=== PATIENT | male | born 1970 | race African-American/Black ===

== ENCOUNTER 2017-01-30 21:41 | Emergency (ER) | payer MEDICARE, OTHER ==
[~2017-01-30] VITALS: Ht 175.3 cm; Wt 57.0 kg
[~2017-01-30 21:41] MED LIST: AMLO5TAB2 PO; TOVI4TAB PO
[2017-01-30 21:54] VITALS: BP 212/118; PULSE 59; RESP 18; O2SAT 95
[2017-01-30 21:57] VITALS: TEMP 98.7
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
[2017-01-30 22:52] VITALS: BP 132/81; PULSE 58; RESP 18; O2SAT 98
== END 2017-01-31 01:53 | disposition home or self-care (01) ==
LOC: NEPE 21:41
DX: R33.9 Retention of urine, unspecified (principal); I10 Essential (primary) hypertension; N31.9 Neuromuscular dysfunction of bladder, unspecified; F17.200 Nicotine dependence, unspecified, uncomplicated; Z87.448 Personal history of other diseases of urinary system; Z87.39 Personal history of other diseases of the musculoskeletal system and connective tissue; Z86.79 Personal history of other diseases of the circulatory system; Z86.69 Personal history of other diseases of the nervous system and sense organs
CPT/HCPCS: 51702

== ENCOUNTER 2017-03-03 16:31 | Emergency (ER) | payer OTHER ==
[~2017-03-03] VITALS: Ht 175.3 cm; Wt 61.0 kg
[2017-03-03 16:32] VITALS: BP 158/90; PULSE 65; RESP 16; TEMP 98.8; O2SAT 97
--- NOTE | 2017-03-03 16:43 | PD ---
Physical Exam Time Seen by Provider: 16:40 Narrative 46yo M c/o pain to his Elizabeth catheter x 5-6 days. Placed January 30 for urinary retention. FC is patent. Denies hematuria. Was suppose to have FC changed but was unable to. Denies abd pain, fever, vomiting. Patient seen in triage. VS reviewed. Awaiting bed placement. Data Data Last Documented VS Vital Signs Date Time Temp Pulse Resp B/P Pulse Ox O2 Delivery O2 Flow Rate FiO2 03/03/17 16:32 98.8 65 16 158/90 97 Room Air MDM Supervised Visit with SABINE: Kenya Laughlin March 03, 2017 16:43
--- NOTE | 2017-03-03 17:31 | PD ---
HPI Chief Complaint: Complaint Time Seen by Provider: 17:17 Travel History International Travel<30 days: No Contact w/Intl Traveler<30days: No Traveled to known affect area: No History of Present Illness HPI Patient 46-year-old male with a history of neurologic bladder and urinary retention presents emergency Department with pelvic pain and penile pain. Patient states she's had a [place] catheter in place for the past 3 weeks. Was placed here for urine retention. He has not been able to follow-up with urologist for replacement. Denies any fever denies any nausea vomiting diarrhea or chest pain. Patient states that occasionally he does require [place] catheter is indwelling to manage his urinary retention but most the time can manage without. States every few months he has to have a catheter placed for a few months. States symptoms are moderate and gradually worsening. PFSH Past Medical History Arthritis: Yes Cancer: No Cardiovascular Problems: Yes Diminished Hearing: No Endocrine: No Gastrointestinal Disorders: No Genitourinary: Yes (neurogenic bladder, ENLARGED PROSTATE/[place] CATH 03/01 FOR RETENTION) Hypertension: Yes Immune Disorder: No Musculoskeletal: Yes Neurologic: Yes (spinal cord injury ) Psychiatric: No Reproductive: No Respiratory: No Past Surgical History Neurologic Surgery: Yes (NECK FUSION 1994) Other Surgery: Yes Social History Alcohol Use: Yes (SOMETIMES) Tobacco Use: Yes (PACK A DAY) Substance Use: No Allergies-Medications (Allergen,Severity, Reaction): Coded Allergies: *MDRO Multi-Drug Resistant Organism (Verified Adverse Reaction, Unknown, 08/10/16) MRSA (urine-03/2016) Reported Meds & Prescriptions Reported Meds & Active Scripts Active Bactrim DS (Sulfamethoxazole-Trimethoprim) 800-160 Mg Tab 1 Tab PO BID Review of Systems Except as stated in HPI: all other systems reviewed are Neg Physical Exam Narrative GENERAL: Well-developed well-nourished, uncomfortable appearance. SKIN: Focused skin assessment warm/dry. HEAD: Atraumatic. Normocephalic. EYES: Pupils equal and round. No scleral icterus. No injection or drainage. ENT: No nasal bleeding or discharge. Mucous membranes pink and moist. NECK: Trachea midline. No JVD. CARDIOVASCULAR: Regular rate and rhythm. No murmur appreciated. RESPIRATORY: No accessory muscle use. Clear to auscultation. Breath sounds equal bilaterally. GASTROINTESTINAL: Abdomen soft, and only tender in the superpubic area, nondistended. Hepatic and splenic margins not palpable. GENITOURINARY: [place] catheter in place, after removal no discharge present. No mass no lesion no rash. MUSCULOSKELETAL: No obvious deformities. No clubbing. No cyanosis. No edema. NEUROLOGICAL: Awake and alert. No obvious cranial nerve deficits. There is some sluggish movements and contractions of the right upper and right lower extremity.. Normal speech. PSYCHIATRIC: Appropriate mood and affect; insight and judgment normal. Data Data Last Documented VS Vital Signs Date Time Temp Pulse Resp B/P Pulse Ox O2 Delivery O2 Flow Rate FiO2 03/03/17 21:07 98.1 50 18 151/82 100 03/03/17 19:15 Room Air Orders Ed Poc Ultrasound (03/03/17 ) Urinalysis - C+S If Indicated (03/03/17 17:30) Urinary Catheter - Remove (03/03/17 17:30) Complete Blood Count With Diff (03/03/17 18:56) Comprehensive Metabolic Panel (03/03/17 18:56) Iv Access Insert/Monitor (03/03/17 18:56) Ecg Monitoring (03/03/17 18:56) Oximetry (03/03/17 18:56) Morphine Inj (Morphine Inj) (03/03/17 19:00) Sodium Chloride 0.9% Flush (Ns Flush) (03/03/17 19:00) Urinary Catheter Management [id number].Q8H (03/03/17 19:00) Urinary Catheter Insert/Apply (03/03/17 19:00) Urine Culture (03/03/17 19:24) Sulfamet-Trimeth Ds 800-160 Mg (Bactrim (03/03/17 20:15) Labs Laboratory Tests Test 03/03/17 03/03/17 19:10 19:24 White Blood Count 5.8 TH/MM3 Red Blood Count 5.14 MIL/MM3 Hemoglobin 15.2 GM/DL Hematocrit 45.9 % Mean Corpuscular Volume 89.4 FL Mean Corpuscular Hemoglobin 29.6 PG Mean Corpuscular Hemoglobin 33.1 % Concent Red Cell Distribution Width 13.4 % Platelet Count 209 TH/MM3 Mean Platelet Volume 8.7 FL Neutrophils (%) (Auto) 56.3 % Lymphocytes (%) (Auto) 30.4 % Monocytes (%) (Auto) 6.5 % Eosinophils (%) (Auto) 4.7 % Basophils (%) (Auto) 2.1 % Neutrophils # (Auto) 3.3 TH/MM3 Lymphocytes # (Auto) 1.8 TH/MM3 Monocytes # (Auto) 0.4 TH/MM3 Eosinophils # (Auto) 0.3 TH/MM3 Basophils # (Auto) 0.1 TH/MM3 CBC Comment DIFF FINAL Differential Comment Sodium Level 141 MEQ/L Potassium Level 3.6 MEQ/L Chloride Level 104 MEQ/L Carbon Dioxide Level 28.7 MEQ/L Anion Gap 8 MEQ/L Blood Urea Nitrogen 13 MG/DL Creatinine 1.36 MG/DL Estimat Glomerular Filtration 68 ML/MIN Rate Random Glucose 74 MG/DL Calcium Level 9.7 MG/DL Total Bilirubin 1.4 MG/DL Aspartate Amino Transf 18 U/L (AST/SGOT) Alanine Aminotransferase 15 U/L (ALT/SGPT) Alkaline Phosphatase 71 U/L Total Protein 8.5 GM/DL Albumin 4.2 GM/DL Urine Color LIGHT-YELLOW Urine Turbidity CLEAR Urine pH 6.5 Urine Specific [place] 1.006 Urine Protein TRACE mg/dL Urine Glucose (UA) NEG mg/dL Urine Ketones NEG mg/dL Urine Occult Blood LARGE Urine Nitrite POS Urine Bilirubin NEG Urine Urobilinogen LESS THAN 2.0 MG/DL Urine Leukocyte Esterase LARGE Urine RBC 4 /hpf Urine WBC 7 /hpf Urine Amorphous Sediment RARE Urine Bacteria MANY /hpf Urine Mucus FEW /lpf Microscopic Urinalysis Comment CULTURE INDICATED MDM Medical Decision Making Medical Screen Exam Complete: Yes Emergency Medical Condition: Yes Differential Diagnosis Urinary retention, neurogenic bladder, urinary tract infection, acute kidney injury, sepsis seems unlikely. Narrative Course Patient roomed in the emergency department, his [place] catheter was removed per his request to try and relieve himself naturally. Patient was unable to do so after proximate hour, bedside ultrasound was obtained and showed a liter of urine remaining in the bladder. Patient was complaining of penile pain after the [place] catheter was removed. [place] catheter was easily placed by nursing which yielded approximately a liter of slightly turbulent urine. Nitrate positive. The remainder of his labs were reassuring, creatinine 1.3. White blood cell count of 5. Patient has no Sirs criteria in emerged Department. Given morphine as he has a ride home and is feeling better. He was given a dose of antibiotics here in emergency Department tolerated by mouth. Discussed need follow-up with the urologist and he is stable for discharge at this time. Discussed Return to ED criteria. Diagnosis Primary Impression: Complicated urinary tract infection Additional Impression: Urinary retention Referrals: Yovani Saavedra DO Additional Instructions: Follow-up with Dr. Saavedra or your urologist. Med/Other Pt SpecificInfo: Prescription(s) given Scripts Sulfamethoxazole-Trimethoprim (Bactrim DS)800-160 Mg Tab1 Tab PO BID #14 TAB Ref 0 Prov:Marty Reyna MD 03/03/17 Disposition: 01 DISCHARGE HOME Condition: Stable Marty Reyna MD March 03, 2017 17:31
[2017-03-03 18:40] VITALS: BP 121/74; PULSE 58; RESP 20; TEMP 97.8; O2SAT 100
[2017-03-03] MEDS ORDERED: SODIUM CHLORIDE 0.9% FLUSH 10 ML FLUSH IV FLUSH PRN (19:00)
[2017-03-03] MEDS ORDERED: MORPHINE SULFATE 4 MG/ML INJ IV PUSH ONE (19:00)
[2017-03-03 19:15] VITALS: BP 158/84; PULSE 58; RESP 18; TEMP 98.4; O2SAT 100
[2017-03-03 19:30] LABS: AUTOMATED NEUTROPHIL # 3.3 TH/MM3 (1.8-7.7); BASOPHIL # 0.1 TH/MM3 (0-0.2); BASOPHIL % 2.1 % (0.0-2.0); EOSINOPHIL # 0.3 TH/MM3 (0-0.4); EOSINOPHIL % 4.7 % (0.0-4.0); HEMATOCRIT 45.9 % (39.0-51.0); HEMO FLAGS DIFF FINAL; LYMPH % 30.4 % (9.0-44.0); LYMPHOCYTE # 1.8 TH/MM3 (1.0-4.8); MEAN CELL VOLUME 89.4 FL (80.0-100.0); MEAN CORPUSCULAR HEMOGLOBIN 29.6 PG (27.0-34.0); MEAN CORPUSCULAR HGB CONC 33.1 % (32.0-36.0); MONO % 6.5 % (0.0-8.0); NEUT % 56.3 % (16.0-70.0); PLATELET COUNT 209 TH/MM3 (150-450); RED BLOOD COUNT 5.14 MIL/MM3 (4.50-5.90); RED CELL DISTRIBUTION WIDTH 13.4 % (11.6-17.2); WHITE BLOOD COUNT 5.8 TH/MM3 (4.0-11.0)
[2017-03-03 19:43] LABS: BACTERIA, URINE MANY /hpf; BLOOD, URINE LARGE (NEG); COMMENT (UR) CULTURE INDICATED; CULTURE IF INDICATED CULTURE INDICATED; GLUCOSE,URINE NEG (NEG); KETONE, URINE NEG (NEG); MUCUS URINE FEW /lpf (OCC); PH, URINE 6.5 (5.0-8.5); URINE COLOR LIGHT-YELLOW (YELLW/STRAW)
[2017-03-03 19:45] LABS: NITRITE,URINE POS (NEG)
[2017-03-03 19:48] LABS: ANION GAP 8 MEQ/L (5-15); AST (GOT) 18 U/L (15-37); BICARBONATE 28.7 MEQ/L (21.0-32.0); BLOOD UREA NITROGEN 13 MG/DL (7-18); CHLORIDE 104 MEQ/L (98-107); GLOMERULAR FILTRATION RATE 68 ML/MIN (>89); POTASSIUM 3.6 MEQ/L (3.5-5.1); SODIUM (NA) 141 MEQ/L (136-145)
[2017-03-03 19:51] LABS: ALKALINE PHOSPHATASE 71 U/L (45-117); ALT (GPT) 15 U/L (12-78); TOTAL BILIRUBIN ADULT 1.4 MG/DL (0.2-1.0)
[2017-03-03] MEDS ORDERED: SULFAMETHOXAZOLE-TRIMETHOPRIM DS 800-160 MG TAB PO ONE (20:15)
[2017-03-03] MEDS ORDERED: BACT800T5 PO (20:16)
[2017-03-03 21:07] VITALS: BP 151/82; TEMP 98.1
== END 2017-03-03 21:07 | disposition home or self-care (01) ==
LOC: NEPD 16:31
DX: N39.0 Urinary tract infection, site not specified (principal); R33.9 Retention of urine, unspecified; N40.0 Benign prostatic hyperplasia without lower urinary tract symptoms; I10 Essential (primary) hypertension; F17.210 Nicotine dependence, cigarettes, uncomplicated; N31.9 Neuromuscular dysfunction of bladder, unspecified; B96.89 Other specified bacterial agents as the cause of diseases classified elsewhere
CPT/HCPCS: 51702; 80053; 81001; 85025; 87086; 96374; 99284; J2270

== ENCOUNTER 2017-03-20 22:17 | Emergency (ER) | payer OTHER ==
[~2017-03-20] VITALS: Ht 175.3 cm; Wt 60.0 kg
[~2017-03-20 22:17] MED LIST changes: -AMLO5TAB2 PO; +BACT800T5 PO; -TOVI4TAB PO
[2017-03-20 22:23] VITALS: BP 161/100; PULSE 61; RESP 16; TEMP 98.6; O2SAT 100
--- NOTE | 2017-03-20 23:05 | PD ---
HPI Chief Complaint: Complaint Time Seen by Provider: 22:57 Travel History International Travel<30 days: No Contact w/Intl Traveler<30days: No Traveled to known affect area: No History of Present Illness HPI Patient 46-year-old male known to me from previous ER visit presents emergency department for fluid leaking around his catheter. Patient has a history of partial paralysis and frequently requires catheterization for voiding. Seen sometime in the recent past and discharged with antibiotics and she was not able to fill as he lost the prescription. He denies any abdominal pain nausea vomiting or diarrhea at this time. He does endorse some mild penile tenderness. He again would like to have the catheter removed to try to urinate on his own. Symptoms have been going on for the past 2 days, no progression. PFSH Past Medical History Arthritis: Yes Cancer: No Cardiovascular Problems: Yes Diminished Hearing: No Endocrine: No Gastrointestinal Disorders: No Genitourinary: Yes (neurogenic bladder, ENLARGED PROSTATE/[place] CATH 03/01 FOR RETENTION) Hypertension: Yes Immune Disorder: No Musculoskeletal: Yes Neurologic: Yes (spinal cord injury ) Psychiatric: No Reproductive: No Respiratory: No Tetanus Vaccination: < 5 Years Influenza Vaccination: Yes Past Surgical History Neurologic Surgery: Yes (NECK FUSION 1994) Other Surgery: Yes Social History Alcohol Use: Yes (SOMETIMES) Tobacco Use: Yes (1/2PPD) Substance Use: Yes (POT) Allergies-Medications (Allergen,Severity, Reaction): Coded Allergies: *MDRO Multi-Drug Resistant Organism (Verified Adverse Reaction, Unknown, ) MRSA (urine-03/2016) Reported Meds & Prescriptions Reported Meds & Active Scripts Active Doxycycline (Doxycycline (Monohydrate)) 150 Mg Cap 150 Mg PO BID 7 Days Review of Systems Except as stated in HPI: all other systems reviewed are Neg Physical Exam Narrative GENERAL: Well-developed well-nourished no apparent distress SKIN: Focused skin assessment warm/dry. HEAD: Atraumatic. Normocephalic. EYES: Pupils equal and round. No scleral icterus. No injection or drainage. ENT: No nasal bleeding or discharge. Mucous membranes pink and moist. NECK: Trachea midline. No JVD. CARDIOVASCULAR: Regular rate and rhythm. No murmur appreciated. RESPIRATORY: No accessory muscle use. Clear to auscultation. Breath sounds equal bilaterally. GASTROINTESTINAL: Abdomen soft, non-tender, nondistended. Hepatic and splenic margins not palpable. GENITOURINARY: [place] catheter in place, minimal tenderness with manipulation of the catheter, penis and testes normal. MUSCULOSKELETAL: No obvious deformities. No clubbing. No cyanosis. No edema. NEUROLOGICAL: Awake and alert. No obvious cranial nerve deficits. Motor grossly within normal limits. Normal speech. PSYCHIATRIC: Appropriate mood and affect; insight and judgment normal. Data Data Last Documented VS Vital Signs Date Time Temp Pulse Resp B/P Pulse Ox O2 Delivery O2 Flow Rate FiO2 03/21/17 00:57 98.3 89 17 161/82 98 03/20/17 22:23 Room Air Orders Urinary Catheter - Remove (03/20/17 23:04) Urinalysis - C+S If Indicated (03/20/17 23:04) Acetamin-Hydrocod 325-5 Mg ([place] 5-325 (03/20/17 23:15) Urine Culture (03/20/17 23:10) Doxycycline (Vibramycin) (03/21/17 01:00) Labs Laboratory Tests Test 03/20/17 23:10 Urine Color YELLOW Urine Turbidity HAZY Urine pH 6.5 Urine Specific [place] 1.020 Urine Protein 30 mg/dL Urine Glucose (UA) NEG mg/dL Urine Ketones NEG mg/dL Urine Occult Blood MOD Urine Nitrite NEG Urine Bilirubin NEG Urine Urobilinogen 4.0 MG/DL Urine Leukocyte Esterase LARGE Urine RBC 91 /hpf Urine WBC 113 /hpf Urine WBC Clumps FEW Urine Squamous Epithelial 1 /hpf Cells Urine Bacteria MOD /hpf Urine Mucus FEW /lpf Microscopic Urinalysis Comment CULTURE INDICATED MDM Medical Decision Making Medical Screen Exam Complete: Yes Emergency Medical Condition: Yes Differential Diagnosis Chronic urinary infection,, acute urinary tract infection, chronic urinary retention, sepsis excluded clinically. Narrative Course Patient roomed in the emergency department, UA was drawn off of his catheter prior to it being removed. The patient was able to tolerate by mouth liquids and ultimately was able to urinate small amounts. The patient would like to leave at this time with a prescription for antibiotics and I am amenable although I have cautioned him that he will probably have urinary retention in the future and will need to follow up with a urologist for consideration of diverting urostomy versus chronic self intermittent catheterizations. He verbalized understanding and agreement. He is stable for discharge this time. His urologist is Dr. Wilcox and he will follow-up with him. Diagnosis Primary Impression: UTI (urinary tract infection) Qualified Code: N30.01 - Acute cystitis with hematuria Med/Other Pt SpecificInfo: Prescription(s) given Scripts Doxycycline (Monohydrate) (Doxycycline)150 Mg [id number] Mg PO BID 7 Days Prov:Marty Reyna MD 03/21/17 Disposition: 01 DISCHARGE HOME Condition: Stable Marty Reyna MD Mar 20, 2017 23:05
[2017-03-20] MEDS ORDERED: ACETAMINOPHEN/HYDROcodone 325 MG/5 MG TAB PO ONE (23:15)
[2017-03-20 23:42] LABS: BACTERIA, URINE MOD /hpf; BLOOD, URINE MOD (NEG); COMMENT (UR) CULTURE INDICATED; CULTURE IF INDICATED CULTURE INDICATED; GLUCOSE,URINE NEG (NEG); KETONE, URINE NEG (NEG); MUCUS URINE FEW /lpf (OCC); NITRITE,URINE NEG (NEG); PH, URINE 6.5 (5.0-8.5); SQUAMOUS EPITHELIAL CELL URINE 1 /hpf (0-5); URINE COLOR YELLOW (YELLW/STRAW)
[2017-03-21 00:39] VITALS: RESP 18
[2017-03-21] MEDS ORDERED: DOXY150C PO (00:49)
[2017-03-21 00:57] VITALS: BP 161/82; TEMP 98.3
[2017-03-21] MEDS ORDERED: DOXYCYCLINE HYCLATE 100 MG CAP PO ONE (01:00)
== END 2017-03-21 01:23 | disposition home or self-care (01) ==
LOC: NEPE 22:17
DX: N39.0 Urinary tract infection, site not specified (principal); B96.89 Other specified bacterial agents as the cause of diseases classified elsewhere; F17.210 Nicotine dependence, cigarettes, uncomplicated; F12.90 Cannabis use, unspecified, uncomplicated
CPT/HCPCS: 51702; 81001; 87086

== ENCOUNTER 2017-05-03 10:37 | Emergency (ER) | payer OTHER, MEDICAID ==
[~2017-05-03] VITALS: Ht 175.3 cm; Wt 59.0 kg
[~2017-05-03 10:37] MED LIST changes: -BACT800T5 PO; +DOXY150C PO
[2017-05-03 10:54] VITALS: BP 214/105; PULSE 60; RESP 24; TEMP 98; O2SAT 100
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
[2017-05-03 11:05] VITALS: BP 214/105; PULSE 65; RESP 18; TEMP 98; O2SAT 100
[2017-05-03 11:10] VITALS: BP 156/90; PULSE 64; RESP 18; O2SAT 100
== END 2017-05-03 12:32 | disposition home or self-care (01) ==
LOC: NEPE 10:37
DX: N13.9 Obstructive and reflux uropathy, unspecified (principal); M13.88 Other specified arthritis, other site; N31.9 Neuromuscular dysfunction of bladder, unspecified; N40.0 Benign prostatic hyperplasia without lower urinary tract symptoms; I10 Essential (primary) hypertension; F17.200 Nicotine dependence, unspecified, uncomplicated
CPT/HCPCS: 51702

== ENCOUNTER 2017-06-09 05:21 | Emergency (ER) | payer OTHER, MEDICAID ==
[2017-06-09 05:24] VITALS: BP 202/96; PULSE 61; RESP 18; TEMP 97.3; O2SAT 100
[2017-06-09 05:45] VITALS: BP 158/88; PULSE 48; RESP 16; O2SAT 99
[2017-06-09 05:58] LABS: AUTOMATED NEUTROPHIL # 2.5 TH/MM3 (1.8-7.7); BASOPHIL % 0.7 % (0.0-2.0); EOSINOPHIL # 0.2 TH/MM3 (0-0.4); EOSINOPHIL % 3.6 % (0.0-4.0); HEMATOCRIT 47.7 % (39.0-51.0); HEMO FLAGS DIFF FINAL; LYMPH % 48.9 % (9.0-44.0); MEAN CELL VOLUME 90.8 FL (80.0-100.0); MEAN CORPUSCULAR HEMOGLOBIN 29.1 PG (27.0-34.0); MONO % 5.8 % (0.0-8.0); PLATELET COUNT 174 TH/MM3 (150-450); RED BLOOD COUNT 5.25 MIL/MM3 (4.50-5.90); RED CELL DISTRIBUTION WIDTH 12.9 % (11.6-17.2); WHITE BLOOD COUNT 6.2 TH/MM3 (4.0-11.0)
[2017-06-09 06:04] LABS: BLOOD, URINE MOD (NEG); COMMENT (UR) CATH-CULTURE IND; CULTURE IF INDICATED CATH CULTURE IND; GLUCOSE,URINE NEG (NEG); KETONE, URINE NEG (NEG); MUCUS URINE FEW /lpf (OCC); NITRITE,URINE POS (NEG); URINE COLOR YELLOW (YELLW/STRAW)
[2017-06-09 06:09] LABS: BICARBONATE 28.4 MEQ/L (21.0-32.0); POTASSIUM 4.1 MEQ/L (3.5-5.1)
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
[2017-06-09] MEDS ORDERED: SULFAMETHOXAZOLE-TRIMETHOPRIM DS 800-160 MG TAB PO ONE (06:45)
[2017-06-09] MEDS ORDERED: BACT800T5 PO (06:55)
[2017-06-09 07:46] VITALS: BP 148/82
== END 2017-06-09 08:15 | disposition home or self-care (01) ==
LOC: NEPC 05:21
DX: N39.0 Urinary tract infection, site not specified (principal); R31.9 Hematuria, unspecified; A49.8 Other bacterial infections of unspecified site; N31.9 Neuromuscular dysfunction of bladder, unspecified; I10 Essential (primary) hypertension; N40.0 Benign prostatic hyperplasia without lower urinary tract symptoms; Z72.0 Tobacco use
CPT/HCPCS: 80048; 81001; 85025; 87086; 99284

== ENCOUNTER 2017-06-10 08:36 | Emergency (ER) | payer OTHER, MEDICAID ==
[~2017-06-10] VITALS: Ht 175.3 cm; Wt 60.0 kg
[~2017-06-10 08:36] MED LIST changes: +BACT800T5 PO; -DOXY150C PO
[2017-06-10] MEDS ORDERED: MORPHINE SULFATE 4 MG/ML INJ IV PUSH ONE (09:00)
[2017-06-10] MEDS ORDERED: SODIUM CHLOR 0.9% 1000 ML INJ 1,000 ML IV ONE (09:00)
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
[2017-06-10 09:07] VITALS: BP 115/61; PULSE 65; RESP 18; TEMP 97.9; O2SAT 99
[2017-06-10 09:17] LABS: AUTOMATED NEUTROPHIL # 5.9 TH/MM3 (1.8-7.7); BASOPHIL # 0.1 TH/MM3 (0-0.2); EOSINOPHIL # 0.1 TH/MM3 (0-0.4); EOSINOPHIL % 1.3 % (0.0-4.0); HEMATOCRIT 48.5 % (39.0-51.0); HEMO FLAGS DIFF FINAL; LYMPH % 19.7 % (9.0-44.0); LYMPHOCYTE # 1.6 TH/MM3 (1.0-4.8); MEAN CELL VOLUME 90.1 FL (80.0-100.0); MEAN CORPUSCULAR HEMOGLOBIN 29.6 PG (27.0-34.0); MEAN CORPUSCULAR HGB CONC 32.8 % (32.0-36.0); MONO % 4.4 % (0.0-8.0); NEUT % 73.6 % (16.0-70.0); PLATELET COUNT 188 TH/MM3 (150-450); RED BLOOD COUNT 5.39 MIL/MM3 (4.50-5.90); RED CELL DISTRIBUTION WIDTH 12.6 % (11.6-17.2)
[2017-06-10 09:23] LABS: BLOOD, URINE NEG (NEG); COMMENT (UR) CATH-CULT NOT IND; CULTURE IF INDICATED CATH CULTURE NOT IND; GLUCOSE,URINE NEG (NEG); KETONE, URINE NEG (NEG); NITRITE,URINE NEG (NEG); URINE COLOR LIGHT-YELLOW (YELLW/STRAW)
[2017-06-10 09:34] VITALS: RESP 18
[2017-06-10 09:41] LABS: POTASSIUM 4.1 MEQ/L (3.5-5.1)
== END 2017-06-10 12:05 | disposition home or self-care (01) ==
LOC: NEPC 08:36
DX: R33.9 Retention of urine, unspecified (principal); N31.9 Neuromuscular dysfunction of bladder, unspecified; M13.80 Other specified arthritis, unspecified site; I10 Essential (primary) hypertension; N40.0 Benign prostatic hyperplasia without lower urinary tract symptoms; Z87.828 Personal history of other (healed) physical injury and trauma; Z72.0 Tobacco use
CPT/HCPCS: 51702; 80048; 81001; 85025; 96361; 96374; 99284; J2270; J7030

== ENCOUNTER 2017-07-03 09:01 | Emergency (ER) | payer OTHER, MEDICAID ==
[~2017-07-03] VITALS: Ht 175.3 cm; Wt 60.0 kg
[2017-07-03 09:07] VITALS: RESP 20
[2017-07-03 09:15] VITALS: BP 130/83; PULSE 53; RESP 14; O2SAT 100
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
[2017-07-03] MEDS ORDERED: SULFAMETHOXAZOLE-TRIMETHOPRIM DS 800-160 MG TAB PO ONE (10:15)
== END 2017-07-03 10:45 | disposition home or self-care (01) ==
LOC: NEPE 09:01
DX: T83.038A Leakage of other urinary catheter, initial encounter (principal); N40.1 Benign prostatic hyperplasia with lower urinary tract symptoms; M19.90 Unspecified osteoarthritis, unspecified site; I10 Essential (primary) hypertension; F17.210 Nicotine dependence, cigarettes, uncomplicated; Z91.14 Patient's other noncompliance with medication regimen; Z87.440 Personal history of urinary (tract) infections; Y84.9 Medical procedure, unspecified as the cause of abnormal reaction of the patient, or of later complication, without mention of misadventure at the time of the procedure; R33.8 Other retention of urine; N31.9 Neuromuscular dysfunction of bladder, unspecified
CPT/HCPCS: 51702; 99283

== ENCOUNTER 2017-07-03 16:42 | Emergency (ER) | payer OTHER, MEDICAID ==
[~2017-07-03] VITALS: Ht 172.7 cm; Wt 60.0 kg
[2017-07-03 16:56] VITALS: BP 201/93; PULSE 62; RESP 24; TEMP 98; O2SAT 100
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
[2017-07-03 17:18] VITALS: BP 157/87; PULSE 54; RESP 16; O2SAT 100
[2017-07-03] MEDS ORDERED: SULFAMETHOXAZOLE-TRIMETHOPRIM DS 800-160 MG TAB PO ONE (17:30)
== END 2017-07-03 18:35 | disposition home or self-care (01) ==
LOC: NEPC 16:42
DX: N40.1 Benign prostatic hyperplasia with lower urinary tract symptoms (principal); R33.8 Other retention of urine; N31.9 Neuromuscular dysfunction of bladder, unspecified; I10 Essential (primary) hypertension; M19.90 Unspecified osteoarthritis, unspecified site; F17.210 Nicotine dependence, cigarettes, uncomplicated; Z91.14 Patient's other noncompliance with medication regimen; Z87.440 Personal history of urinary (tract) infections
CPT/HCPCS: 51702

== ENCOUNTER 2017-07-15 19:45 | Emergency (ER) | payer OTHER, MEDICAID ==
[~2017-07-15] VITALS: Ht 175.3 cm; Wt 60.0 kg
[2017-07-15 20:05] VITALS: BP 140/68; PULSE 70; RESP 17; TEMP 97.8; O2SAT 98
[2017-07-15] MEDS ORDERED: PHENAZOPYRIDINE HCL 200 MG TAB PO ONE (21:30)
[2017-07-15] MEDS ORDERED: MORPHINE SULFATE 4 MG/ML INJ IV PUSH ONE (21:30)
[2017-07-15] MEDS ORDERED: SODIUM CHLOR 0.9% 1000 ML INJ 1,000 ML IV ONE (21:30)
[2017-07-15] MEDS ORDERED: ONDANSETRON HCL 4 MG/2 ML VIAL IV PUSH ONE (21:30)
--- NOTE | 2017-07-15 21:43 | PD ---
HPI Chief Complaint: Complaint Time Seen by Provider: 21:28 Travel History International Travel<30 days: No Contact w/Intl Traveler<30days: No Traveled to known affect area: No History of Present Illness HPI The patient is a 46-year-old [place] male who presents to the emergency department for penile pain. The patient has a history of previous spinal cord injury and is currently wheelchair-bound. The patient has a history of urinary retention and has a chronic indwelling Elizabeth catheter. The patient states his Elizabeth catheter was last replaced on July 03, 2017. He was diagnosed with UTI at that time and prescribed Bactrim, however, he never got the Bactrim filled. He now complains of increasing pain in the penis with cloudy urine. He denies any decreased urinary output. He denies any associated fever, chills , or sweats. He does complain of pain near the penile tip. Symptoms are moderate, possibly exacerbated by underlying UTI, there are no current alleviating factors. PFSH Past Medical History Arthritis: Yes Cancer: No Cardiovascular Problems: Yes Diminished Hearing: No Endocrine: No Gastrointestinal Disorders: No Genitourinary: Yes (neurogenic bladder, ENLARGED PROSTATE) Hypertension: Yes Immune Disorder: No Implanted Vascular Access Dvce: No Musculoskeletal: Yes Neurologic: Yes (spinal cord injury C3,C4,C5) Psychiatric: No Reproductive: No Respiratory: No Tetanus Vaccination: Unknown Influenza Vaccination: Yes Past Surgical History Neurologic Surgery: Yes (NECK FUSION 1994) Other Surgery: Yes Social History Alcohol Use: No Tobacco Use: Yes (1/3 OF A PACK ) Substance Use: Yes (MARIJUANA) Allergies-Medications (Allergen,Severity, Reaction): Coded Allergies: *MDRO Multi-Drug Resistant Organism (Verified Adverse Reaction, Unknown, ) MRSA (urine-03/2016) Reported Meds & Prescriptions Reported Meds & Active Scripts Active No Active Prescriptions or Reported Medications Review of Systems Except as stated in HPI: all other systems reviewed are Neg General / Constitutional: No: Fever Cardiovascular: No: Chest Pain or Discomfort Respiratory: No: Shortness of Breath Gastrointestinal: No: Nausea, Vomiting, Abdominal Pain Genitourinary: Positive: Dysuria, Other (as noted in the history of present illness) Physical Exam Narrative GENERAL: Awake, alert, pleasant 46 year male who appears his stated age and is in no acute respiratory distress. SKIN: Focused skin assessment warm/dry. HEAD: Atraumatic. Normocephalic. EYES: No injection or drainage. ENT: No nasal bleeding or discharge. Mucous membranes pink and moist. NECK: Trachea midline. No JVD. CARDIOVASCULAR: Regular rate and rhythm. No murmur appreciated. RESPIRATORY: No accessory muscle use. Clear to auscultation. Breath sounds equal bilaterally. GASTROINTESTINAL: Abdomen soft, non-tender, nondistended. No rebound tenderness. Genitourinary: Circumcised phallus. Reducible left inguinal hernia. Catheter in place with cloudy urine and sediment noted. Drainage around the penile head noted. MUSCULOSKELETAL: Atrophy of the lower extremity is bilateral with significant reduced range of motion. NEUROLOGICAL: Awake and alert. No obvious cranial nerve deficits. Significant reduced range of motion of the lower extremities, is able flex at the hips, but is unable to ambulate. PSYCHIATRIC: Appropriate mood and affect; insight and judgment normal. Data Data Last Documented VS Vital Signs Date Time Temp Pulse Resp B/P (MAP) Pulse Ox O2 Delivery O2 Flow Rate FiO2 07/15/17 20:05 97.8 70 17 140/68 (92) 98 Room Air Orders Orders Urinary Catheter Insert/Apply (07/15/17 21:29) Urinary Catheter - Remove (07/15/17 21:29) Urinalysis - C+S If Indicated (07/15/17 21:29) Basic Metabolic Panel (Bmp) (07/15/17 21:29) Complete Blood Count With Diff (07/15/17 21:29) Morphine Inj (Morphine Inj) (07/15/17 21:30) Ondansetron Inj (Zofran Inj) (07/15/17 21:30) Phenazopyridine (Pyridium) (07/15/17 21:30) Sodium Chlor 0.9% 1000 Ml Inj (Ns 1000 M (07/15/17 21:30) Urine Culture (07/15/17 22:15) Ceftriaxone Inj (Rocephin Inj) (07/15/17 22:45) Labs Laboratory Tests Test 07/15/17 22:15 White Blood Count 7.4 TH/MM3 Red Blood Count 4.97 MIL/MM3 Hemoglobin 14.5 GM/DL Hematocrit 44.2 % Mean Corpuscular Volume 88.9 FL Mean Corpuscular Hemoglobin 29.2 PG Mean Corpuscular Hemoglobin Concent 32.8 % Red Cell Distribution Width 13.0 % Platelet Count 225 TH/MM3 Mean Platelet Volume 8.8 FL Neutrophils (%) (Auto) 56.3 % Lymphocytes (%) (Auto) 31.8 % Monocytes (%) (Auto) 6.6 % Eosinophils (%) (Auto) 3.9 % Basophils (%) (Auto) 1.4 % Neutrophils # (Auto) 4.2 TH/MM3 Lymphocytes # (Auto) 2.4 TH/MM3 Monocytes # (Auto) 0.5 TH/MM3 Eosinophils # (Auto) 0.3 TH/MM3 Basophils # (Auto) 0.1 TH/MM3 CBC Comment DIFF FINAL Differential Comment Urine Color LIGHT-RED Urine Turbidity CLOUDY Urine pH 8.0 Urine Specific [place] 1.024 Urine Protein 300 mg/dL Urine Glucose (UA) NEG mg/dL Urine Ketones NEG mg/dL Urine Occult Blood SMALL Urine Nitrite NEG Urine Bilirubin NEG Urine Urobilinogen 2.0 MG/DL Urine Leukocyte Esterase LARGE Urine RBC 74 /hpf Urine WBC 168 /hpf Urine Amorphous Sediment RARE Urine Bacteria OCC /hpf Urine Mucus FEW /lpf Microscopic Urinalysis Comment CATH-CULTURE IND Blood Urea Nitrogen 20 MG/DL Creatinine 1.17 MG/DL Random Glucose 86 MG/DL Calcium Level 9.8 MG/DL Sodium Level 141 MEQ/L Potassium Level 3.8 MEQ/L Chloride Level 109 MEQ/L Carbon Dioxide Level 25.7 MEQ/L Anion Gap 6 MEQ/L Estimat Glomerular Filtration Rate 81 ML/MIN MDM Medical Decision Making Medical Screen Exam Complete: Yes Emergency Medical Condition: Yes Medical Record Reviewed: Yes Interpretation(s) Laboratory Tests Test 07/15/17 22:15 White Blood Count 7.4 TH/MM3 Red Blood Count 4.97 MIL/MM3 Hemoglobin 14.5 GM/DL Hematocrit 44.2 % Mean Corpuscular Volume 88.9 FL Mean Corpuscular Hemoglobin 29.2 PG Mean Corpuscular Hemoglobin Concent 32.8 % Red Cell Distribution Width 13.0 % Platelet Count 225 TH/MM3 Mean Platelet Volume 8.8 FL Neutrophils (%) (Auto) 56.3 % Lymphocytes (%) (Auto) 31.8 % Monocytes (%) (Auto) 6.6 % Eosinophils (%) (Auto) 3.9 % Basophils (%) (Auto) 1.4 % Neutrophils # (Auto) 4.2 TH/MM3 Lymphocytes # (Auto) 2.4 TH/MM3 Monocytes # (Auto) 0.5 TH/MM3 Eosinophils # (Auto) 0.3 TH/MM3 Basophils # (Auto) 0.1 TH/MM3 CBC Comment DIFF FINAL Differential Comment Urine Color LIGHT-RED Urine Turbidity CLOUDY Urine pH 8.0 Urine Specific [place] 1.024 Urine Protein 300 mg/dL Urine Glucose (UA) NEG mg/dL Urine Ketones NEG mg/dL Urine Occult Blood SMALL Urine Nitrite NEG Urine Bilirubin NEG Urine Urobilinogen 2.0 MG/DL Urine Leukocyte Esterase LARGE Urine RBC 74 /hpf Urine WBC 168 /hpf Urine Amorphous Sediment RARE Urine Bacteria OCC /hpf Urine Mucus FEW /lpf Microscopic Urinalysis Comment CATH-CULTURE IND Blood Urea Nitrogen 20 MG/DL Creatinine 1.17 MG/DL Random Glucose 86 MG/DL Calcium Level 9.8 MG/DL Sodium Level 141 MEQ/L Potassium Level 3.8 MEQ/L Chloride Level 109 MEQ/L Carbon Dioxide Level 25.7 MEQ/L Anion Gap 6 MEQ/L Estimat Glomerular Filtration Rate 81 ML/MIN Differential Diagnosis Differential diagnosis includes UTI, urinary retention, complicated urinary tract infection, cystitis, bladder spasm. Narrative Course The UA was removed and a new UA was placed. UA from new catheter was sent to lab. CBC and BMP were sent to lab. The patient was administer morphine, Zofran , IV fluids, and oral Pyridium for pain. UA was positive for UTI. Creatinine was normal. The patient was administer Rocephin 1 g intravenously. The patient be discharged home on Cipro 500 mg twice a day and is advised to follow- up with his primary physician. Diagnosis Primary Impression: Complicated urinary tract infection Patient Instructions: General Instructions, Narcotic given in the ED Additional Instructions: Medications as directed. Follow-up with your primary physician. Return if symptoms worsen or progress. Med/Other Pt SpecificInfo: Prescription(s) given Scripts Ciprofloxacin (Cipro) 500 Mg Tab 500 MG PO BID for Infection, #7 TAB 0 Refills Prov: Anshu Cabral MD 07/15/17 Disposition: 01 DISCHARGE HOME Condition: Stable Anshu Cabral MD Jul 15, 2017 21:43
[2017-07-15 22:27] LABS: AUTOMATED NEUTROPHIL # 4.2 TH/MM3 (1.8-7.7); BASOPHIL # 0.1 TH/MM3 (0-0.2); BASOPHIL % 1.4 % (0.0-2.0); EOSINOPHIL # 0.3 TH/MM3 (0-0.4); EOSINOPHIL % 3.9 % (0.0-4.0); HEMATOCRIT 44.2 % (39.0-51.0); HEMO FLAGS DIFF FINAL; LYMPH % 31.8 % (9.0-44.0); LYMPHOCYTE # 2.4 TH/MM3 (1.0-4.8); MEAN CELL VOLUME 88.9 FL (80.0-100.0); MEAN CORPUSCULAR HEMOGLOBIN 29.2 PG (27.0-34.0); MEAN CORPUSCULAR HGB CONC 32.8 % (32.0-36.0); MONO % 6.6 % (0.0-8.0); NEUT % 56.3 % (16.0-70.0); PLATELET COUNT 225 TH/MM3 (150-450); RED BLOOD COUNT 4.97 MIL/MM3 (4.50-5.90); WHITE BLOOD COUNT 7.4 TH/MM3 (4.0-11.0)
[2017-07-15 22:29] LABS: BACTERIA, URINE OCC /hpf; BLOOD, URINE SMALL (NEG); GLUCOSE,URINE NEG (NEG); KETONE, URINE NEG (NEG); MUCUS URINE FEW /lpf (OCC); NITRITE,URINE NEG (NEG); URINE COLOR LIGHT-RED (YELLW/STRAW)
[2017-07-15 22:30] LABS: COMMENT (UR) CATH-CULTURE IND; CULTURE IF INDICATED CATH CULTURE IND
[2017-07-15] MEDS ORDERED: cefTRIAXone INJ 1,000 MG in SODIUM CHLORIDE 0.9% INJ 100 ML IV ONE (22:45)
[2017-07-15 22:54] LABS: BICARBONATE 25.7 MEQ/L (21.0-32.0); POTASSIUM 3.8 MEQ/L (3.5-5.1)
[2017-07-15] MEDS ORDERED: CIPR-9 PO (22:57)
== END 2017-07-16 01:18 | disposition home or self-care (01) ==
LOC: NEPE 19:45
DX: T83.511A Infection and inflammatory reaction due to indwelling urethral catheter, initial encounter (principal); B96.20 Unspecified Escherichia coli [E. coli] as the cause of diseases classified elsewhere; F17.200 Nicotine dependence, unspecified, uncomplicated
CPT/HCPCS: 51702; 80048; 81001; 85025; 87077; 87086; 87186; 96374; 96375; 99284; J0696; J2270; J2405; J7030

== ENCOUNTER 2017-08-20 15:06 | Emergency (ER) | payer OTHER, MEDICAID ==
[~2017-08-20] VITALS: Ht 175.3 cm; Wt 65.0 kg
[~2017-08-20 15:06] MED LIST changes: -BACT800T5 PO; +CIPR-9 PO
[2017-08-20 15:19] VITALS: BP 148/118; PULSE 64; RESP 16; TEMP 97.9; O2SAT 94
[2017-08-20] MEDS ORDERED: NITR100C4 PO (15:25)
--- NOTE | 2017-08-20 16:09 | PD ---
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 The patient has a history of previous spinal cord injury, has been using a penile catheter for the last 3 years. The patient states he was advised to have his catheter exchange every month. The patient is followed by Dr. Wilcox his urologist, however, does not have his catheter exchange at the urologist office. He does complain of occasional discharge around the penis as well as cloudy urine. He denies any nausea, vomiting, abdominal pain, fever, chills, or sweats. Symptoms are mild, exacerbated by previous spinal cord injury, and there are no current alleviating factors. PFSH Past Medical History Arthritis: Yes Cancer: No Cardiovascular Problems: Yes Diminished Hearing: No Endocrine: No Gastrointestinal Disorders: No Genitourinary: Yes (neurogenic bladder, ENLARGED PROSTATE) Hypertension: Yes Immune Disorder: No Implanted Vascular Access Dvce: No Musculoskeletal: Yes Neurologic: Yes (spinal cord injury C3,C4,C5) Psychiatric: No Reproductive: No Respiratory: No Past Surgical History Neurologic Surgery: Yes (NECK FUSION 1985) Other Surgery: Yes Social History Alcohol Use: No Tobacco Use: Yes (1/3 OF A PACK ) Substance Use: Yes (MARIJUANA) Allergies-Medications (Allergen,Severity, Reaction): Coded Allergies: *MDRO Multi-Drug Resistant Organism (Verified Adverse Reaction, Unknown, 08/20/17) MRSA (urine-03/2016) Reported Meds & Prescriptions Reported Meds & Active Scripts Active Reported Nitrofurantoin Monohydrate Macrocrystals (Nitrofurantoin Monoh/Nitrofur Macro) 100 Mg Cap 100 Mg PO BID Review of Systems Except as stated in HPI: all other systems reviewed are Neg General / Constitutional: No: Fever, Chills Genitourinary: Positive: Other (as noted in history of present illness), No: Decreased Urinary Output Physical Exam Narrative GENERAL: Awake, alert, nontoxic-appearing 46 year old male appears his stated age and is in no acute respiratory distress. SKIN: Focused skin assessment warm/dry. HEAD: Atraumatic. Normocephalic. EYES: No injection or drainage. ENT: No nasal bleeding or discharge. Mucous membranes pink and moist. NECK: Trachea midline. No JVD. CARDIOVASCULAR: Regular rate and rhythm. No murmur appreciated. RESPIRATORY: No accessory muscle use. Clear to auscultation. Breath sounds equal bilaterally. GASTROINTESTINAL: Abdomen soft, non-tender, nondistended. Genitourinary: Elizabeth in place, circumcised phallus. Mild drainage from around the Elizabeth catheter which is white. MUSCULOSKELETAL: Able to use his upper extremities. NEUROLOGICAL: Able to use his upper extremities. Not able to transfer with strength paredes upper extremities from wheelchair to bed. PSYCHIATRIC: Appropriate mood and affect; insight and judgment normal. Data Data Last Documented VS Vital Signs Date Time Temp Pulse Resp B/P (MAP) Pulse Ox O2 Delivery O2 Flow Rate FiO2 08/20/17 15:20 64 16 94 Room Air 08/20/17 15:19 97.9 148/118 (128) Orders Orders Urinary Catheter - Remove (08/20/17 15:35) Urinary Catheter Insert/Apply (08/20/17 15:35) Urinalysis - C+S If Indicated (08/20/17 15:35) Urine Culture (08/20/17 16:28) Labs Laboratory Tests Test 08/20/17 16:28 Urine Color YELLOW Urine Turbidity CLEAR Urine pH 7.5 Urine Specific [place] 1.015 Urine Protein 100 mg/dL Urine Glucose (UA) NEG mg/dL Urine Ketones NEG mg/dL Urine Occult Blood LARGE Urine Nitrite NEG Urine Bilirubin NEG Urine Urobilinogen LESS THAN 2.0 MG/DL Urine Leukocyte Esterase SMALL Urine RBC /hpf Urine WBC 10 /hpf Urine Bacteria RARE /hpf Urine Hyaline Casts 2 /lpf Urine Mucus FEW /lpf Microscopic Urinalysis Comment CULTURE INDICATED MDM Medical Decision Making Medical Screen Exam Complete: Yes Emergency Medical Condition: Yes Medical Record Reviewed: Yes Interpretation(s) Laboratory Tests Test 08/20/17 16:28 Urine Color YELLOW Urine Turbidity CLEAR Urine pH 7.5 Urine Specific [place] 1.015 Urine Protein 100 mg/dL Urine Glucose (UA) NEG mg/dL Urine Ketones NEG mg/dL Urine Occult Blood LARGE Urine Nitrite NEG Urine Bilirubin NEG Urine Urobilinogen LESS THAN 2.0 MG/DL Urine Leukocyte Esterase SMALL Urine RBC /hpf Urine WBC 10 /hpf Urine Bacteria RARE /hpf Urine Hyaline Casts 2 /lpf Urine Mucus FEW /lpf Microscopic Urinalysis Comment CULTURE INDICATED Differential Diagnosis Differential diagnosis includes UTI, neurogenic bladder, obstructive uropathy, chronic indwelling Elizabeth catheter. Narrative Course The patient's Elizabeth catheter was exchanged and UA was sent to lab. The UA reveals innumerable RBCs, does have WBCs with bacteria. Therefore, patient will be treated, will be discharged home on Bactrim twice a day for one week. Patient is stable for outpatient follow-up. Diagnosis Primary Impression: Complicated urinary tract infection Additional Impression: Urinary catheter (Elizabeth) change required Patient Instructions: General Instructions Additional Instructions: Medications as directed. Follow-up with your urologist and primary physician. Return if symptoms worsen or progress. Med/Other Pt SpecificInfo: Prescription(s) given Scripts Sulfamethoxazole-Trimethoprim (Bactrim DS) 800-160 Mg Tab 1 TAB PO BID for Infection, #14 TAB 0 Refills Prov: Anshu Cabral MD 08/20/17 Disposition: 01 DISCHARGE HOME Condition: Stable Anshu Cabral MD Aug 20, 2017 16:09
[2017-08-20 16:49] LABS: BACTERIA, URINE RARE /hpf; BLOOD, URINE LARGE (NEG); COMMENT (UR) CULTURE INDICATED; CULTURE IF INDICATED CULTURE INDICATED; GLUCOSE,URINE NEG (NEG); HYALINE CAST, URINE 2 /lpf (RARE); KETONE, URINE NEG (NEG); MUCUS URINE FEW /lpf (OCC); NITRITE,URINE NEG (NEG); PH, URINE 7.5 (5.0-8.5); URINE COLOR YELLOW (YELLW/STRAW)
[2017-08-20] MEDS ORDERED: BACT800T5 PO (17:06)
== END 2017-08-20 19:14 | disposition home or self-care (01) ==
LOC: NEPD 15:06
DX: N39.0 Urinary tract infection, site not specified (principal); B96.20 Unspecified Escherichia coli [E. coli] as the cause of diseases classified elsewhere; Z46.6 Encounter for fitting and adjustment of urinary device; M19.90 Unspecified osteoarthritis, unspecified site; N31.9 Neuromuscular dysfunction of bladder, unspecified; N40.0 Benign prostatic hyperplasia without lower urinary tract symptoms; I10 Essential (primary) hypertension; F17.200 Nicotine dependence, unspecified, uncomplicated
CPT/HCPCS: 51702; 81001; 87077; 87086; 87186

== ENCOUNTER 2018-03-10 03:05 | Emergency (ER) | payer OTHER, MEDICAID ==
[2018-03-10] VITALS (11 sets, daily range): BP systolic 137–168; BP diastolic 55–103; PULSE 56–78; RESP 16–22; TEMP 97–97.8; O2SAT 98–100
[~2018-03-10] VITALS: Ht 175.3 cm; Wt 60.0 kg
[~2018-03-10 03:05] MED LIST changes: -CIPR-9 PO; +CYCL10TA PO
[2018-03-10] MEDS ORDERED: DIAZ10 PO (03:28)
[2018-03-10] MEDS ORDERED: ATOR20TA15 PO (03:28)
[2018-03-10] MEDS ORDERED: TRAM50TA PO (03:28)
--- NOTE | 2018-03-10 03:58 | PD ---
HPI Chief Complaint: Complaint Time Seen by Provider: 03:51 Travel History International Travel<30 days: No Contact w/Intl Traveler<30days: No Traveled to known affect area: No History of Present Illness HPI 47-year-old male presents to the emergency department by EMS transport for evaluation of penile pain and bladder spasm. Patient has history of previous spinal injury and currently has a suprapubic catheter. Patient for years had an indwelling Elizabeth catheter but in the past 2 months was given a suprapubic catheter. Patient does not report any fever or chills. Patient complains of severe pain no prior prism. Patient rates discomfort 10/10 intensity. Patient is also noted that urine has become more concentrated and malodorous. Patient is due to have his urinary catheter exchange next week. PFSH Past Medical History Narrative Medical Neurogenic bladder spinal cord injury hypertension cervical spine fusion tobacco use marijuana use; nursing notes reviewed Arthritis: Yes Cancer: No Cardiovascular Problems: Yes Diminished Hearing: No Endocrine: No Gastrointestinal Disorders: No Genitourinary: Yes (neurogenic bladder, ENLARGED PROSTATE) Hypertension: Yes Immune Disorder: No Implanted Vascular Access Dvce: No Musculoskeletal: Yes Neurologic: Yes (spinal cord injury C3,C4,C5) Psychiatric: No Reproductive: No Respiratory: No Past Surgical History Neurologic Surgery: Yes (NECK FUSION 1985) Other Surgery: Yes Social History Alcohol Use: No Tobacco Use: Yes (1/3 OF A PACK ) Substance Use: Yes (MARIJUANA) Allergies-Medications (Allergen,Severity, Reaction): Coded Allergies: *MDRO Multi-Drug Resistant Organism (Verified Adverse Reaction, Unknown, ) MRSA (urine-03/2016) Reported Meds & Prescriptions Reported Meds & Active Scripts Active Reported Valium (Diazepam) 10 Mg Tab 10 Mg PO TID PRN Tramadol (Tramadol HCl) 50 Mg Tab 50 Mg PO DAILY PRN Atorvastatin (Atorvastatin Calcium) 20 Mg Tab 20 Mg PO DAILY Review of Systems Except as stated in HPI: all other systems reviewed are Neg Physical Exam Narrative GENERAL: Well-developed thin male in obvious discomfort with mild diaphoresis SKIN: Warm and dry. HEAD: Normocephalic. EYES: No scleral icterus. No injection or drainage. NECK: Supple, trachea midline. No JVD or lymphadenopathy. CARDIOVASCULAR: Regular rate and rhythm without murmurs, gallops, or rubs. RESPIRATORY: Breath sounds equal bilaterally. No accessory muscle use. GASTROINTESTINAL: Abdomen soft, non-tender, suprapubic catheter in place, nondistended. : Circumcised male with soft non-engorged penis with no discharge at the meatus positive left groin inguinal hernia reducible with gentle pressure bilateral descended testicles MUSCULOSKELETAL: No cyanosis, or edema. BACK: Nontender without obvious deformity. No CVA tenderness. Data Data Last Documented VS Vital Signs Date Time Temp Pulse Resp B/P (MAP) Pulse Ox O2 Delivery O2 Flow Rate FiO2 03/10/18 04:46 58 20 137/55 (82) 100 Room Air 03/10/18 03:17 97.0 Orders Orders Complete Blood Count With Diff (03/10/18 03:52) Basic Metabolic Panel (Bmp) (03/10/18 03:52) Urinalysis - C+S If Indicated (03/10/18 03:52) Sodium Chlor 0.9% 1000 Ml Inj (Ns 1000 M (03/10/18 04:00) Morphine Inj (Morphine Inj) (03/10/18 04:00) Morphine Inj (Morphine Inj) (03/10/18 04:30) Urine Culture (03/10/18 03:25) Ceftriaxone Inj (Rocephin Inj) (03/10/18 06:30) Labs Laboratory Tests Test 03/10/18 03:25 03/10/18 04:08 03/10/18 05:45 Urine Color YELLOW Urine Turbidity HAZY Urine pH 6.0 Urine Specific [place] 1.024 Urine Protein 100 mg/dL Urine Glucose (UA) NEG mg/dL Urine Ketones TRACE mg/dL Urine Occult Blood TRACE Urine Nitrite NEG Urine Bilirubin NEG Urine Urobilinogen 2.0 MG/DL Urine Leukocyte Esterase LARGE Urine RBC 42 /hpf Urine WBC 67 /hpf Urine Bacteria MOD /hpf Urine Hyaline Casts 2 /lpf Urine Mucus FEW /lpf Urine Yeast ([place]) FEW Microscopic Urinalysis Comment CATH-CULTURE IND White Blood Count 5.6 TH/MM3 Red Blood Count 5.17 MIL/MM3 Hemoglobin 14.9 GM/DL Hematocrit 46.7 % Mean Corpuscular Volume 90.2 FL Mean Corpuscular Hemoglobin 28.9 PG Mean Corpuscular Hemoglobin Concent 32.0 % Red Cell Distribution Width 13.0 % Platelet Count 81 TH/MM3 Mean Platelet Volume 9.1 FL Neutrophils (%) (Auto) 50.2 % Lymphocytes (%) (Auto) 38.1 % Monocytes (%) (Auto) 6.8 % Eosinophils (%) (Auto) 4.2 % Basophils (%) (Auto) 0.7 % Neutrophils # (Auto) 2.8 TH/MM3 Lymphocytes # (Auto) 2.1 TH/MM3 Monocytes # (Auto) 0.4 TH/MM3 Eosinophils # (Auto) 0.2 TH/MM3 Basophils # (Auto) 0.0 TH/MM3 CBC Comment AUTO DIFF Differential Comment AUTO DIFF CONFIRMED Platelet Estimate LOW Platelet Morphology Comment NORMAL Blood Urea Nitrogen 12 MG/DL Creatinine 1.12 MG/DL Random Glucose 81 MG/DL Calcium Level 9.2 MG/DL Sodium Level 142 MEQ/L Potassium Level 3.6 MEQ/L Chloride Level 107 MEQ/L Carbon Dioxide Level 24.9 MEQ/L Anion Gap 10 MEQ/L Estimat Glomerular Filtration Rate 85 ML/MIN MDM Medical Decision Making Medical Screen Exam Complete: Yes Emergency Medical Condition: Yes Medical Record Reviewed: Yes Interpretation(s) CBC is automated differential consistent with thrombus cytopenia platelet count 81,000 Metabolic panel grossly normal range Urinalysis positive for white blood cells and bacteria culture indicated with cath specimen Differential Diagnosis Complicated UTI, catheter malfunction, bladder spasm, obstructive uropathy Narrative Course IV access obtained specimens collections of resulting patient administered morphine 2 mg IV along with a liter of normal saline At 4:30 AM patient continues complain of pain with recurrent diaphoresis blood pressure 153/patient given additional dose of morphine 2 mg IV monitor blood pressures closely and try to prevent any further increase in blood pressure or episodes of increased pain we will monitor closely for autonomic dysreflexia; lab values pending @ 4:56 AM 135/65 Review of medical records indicates the last 2 urine cultures obtained were positive for E. coli sensitive to cephalosporins and resistant to Bactrim Macrodantin and Cipro; patient given dose of Rocephin 1 g IV piggyback and will be given prescription for cephalexin with close follow-up with his primary care provider/urologist. Patient is encouraged to return immediately to the emergency department for any concerns or change in condition. Blood pressure has remained stable and patient is stable for outpatient management; patient will be given prescription for outpatient management of Diagnosis Primary Impression: UTI (urinary tract infection) Referrals: Primary Care Physician 2 days Urologist 1 day Patient Instructions: General Instructions Additional Instructions: Increase fluid hydration Follow-up with your primary care provider and urologist Return the emergency department concerns or change in condition Complete course of antibiotic as prescribed Take pain medication as prescribed as needed Take medication as prescribed for bladder spasm as needed Take acetaminophen/Tylenol as needed for fever 100.4F or greater Med/Other Pt SpecificInfo: Prescription(s) given Scripts Oxycodone-Acetaminophen (Percocet) 5-325 mg Tab 1 TAB PO Q6H Y for PAIN, #5 TAB 0 Refills Prov: Chloe Napier MD 03/10/18 Phenazopyridine (Pyridium) 100 Mg Tab 100 MG PO Q8H Y for DYSURIA, #6 TAB 0 Refills Prov: Chloe Napier MD 03/10/18 Cephalexin (Keflex) 500 Mg Capsule 500 MG PO Q6H for Infection, #40 CAP 0 Refills Prov: Chloe Napier MD 03/10/18 Disposition: 01 DISCHARGE HOME Condition: Stable Chloe Napier MD March 10, 2018 03:58
[2018-03-10] MEDS ORDERED: SODIUM CHLOR 0.9% 1000 ML INJ 1,000 ML IV ONE (04:00)
[2018-03-10] MEDS ORDERED: MORPHINE SULFATE 4 MG/ML INJ IV PUSH ONE ×2 (04:00→06:45)
[2018-03-10] MEDS ORDERED: MORPHINE SULFATE 2 MG/ML SYRINGE IV PUSH ONE (04:30)
[2018-03-10 04:51] LABS: AUTOMATED NEUTROPHIL # 2.8 TH/MM3 (1.8-7.7); BASOPHIL % 0.7 % (0.0-2.0); EOSINOPHIL # 0.2 TH/MM3 (0-0.4); EOSINOPHIL % 4.2 % (0.0-4.0); HEMATOCRIT 46.7 % (39.0-51.0); HEMOGLOBIN 14.9 GM/DL (13.0-17.0); LYMPH % 38.1 % (9.0-44.0); LYMPHOCYTE # 2.1 TH/MM3 (1.0-4.8); MEAN CELL VOLUME 90.2 FL (80.0-100.0); MEAN CORPUSCULAR HEMOGLOBIN 28.9 PG (27.0-34.0); MEAN PLATELET VOLUME 9.1 FL (7.0-11.0); MONO % 6.8 % (0.0-8.0); MONOCYTE # 0.4 TH/MM3 (0-0.9); NEUT % 50.2 % (16.0-70.0); PLATELET COUNT 81 TH/MM3 (150-450); RED BLOOD COUNT 5.17 MIL/MM3 (4.50-5.90); WHITE BLOOD COUNT 5.6 TH/MM3 (4.0-11.0)
[2018-03-10 05:00] LABS: BACTERIA, URINE MOD /hpf; BILIRUBIN, URINE NEG (NEG); BLOOD, URINE TRACE (NEG); GLUCOSE,URINE NEG (NEG); HYALINE CAST, URINE 2 /lpf (RARE); KETONE, URINE TRACE mg/dL (NEG); MUCUS URINE FEW /lpf (OCC); NITRITE,URINE NEG (NEG); URINE COLOR YELLOW (YELLW/STRAW); URINE LEUKOCYTE ESTERASE LARGE (NEG)
[2018-03-10 06:29] LABS: BICARBONATE 24.9 MEQ/L (21.0-32.0); CALCIUM 9.2 MG/DL (8.5-10.1); CREATININE 1.12 MG/DL (0.60-1.30)
[2018-03-10] MEDS ORDERED: cefTRIAXone INJ 1,000 MG in SODIUM CHLORIDE 0.9% INJ 100 ML IV ONE (06:30)
[2018-03-10] MEDS ORDERED: PHEN0.4T PO (06:35)
[2018-03-10] MEDS ORDERED: CEPH-460 PO (06:35)
[2018-03-10] MEDS ORDERED: PERC5TAB12 PO (06:35)
[2018-03-10] MEDS ORDERED: DIAZEPAM 5 MG TAB PO ONE (06:45)
== END 2018-03-10 10:00 | disposition home or self-care (01) ==
LOC: NEPC 03:05
DX: N39.0 Urinary tract infection, site not specified (principal); F12.90 Cannabis use, unspecified, uncomplicated; Z72.0 Tobacco use
CPT/HCPCS: 80048; 81001; 85025; 87086; 96361; 96365; 96375; 96376; 99284; J0696; J2270; J7030

== ENCOUNTER 2018-09-04 22:52 | Observation (INO) ==
[2018-09-04] MEDS ORDERED: levoFLOXacin 750 MG Tablet PO ONE (23:39)
--- NOTE | 2018-09-04 23:48 | ED ---
HPI General Chief complaint: Urogenital-Male Stated complaint: Poss UTI Time Seen by Provider: 09/04/18 23:19 Source: patient Mode of arrival: EMS Limitations: physical limitation History of Present Illness HPI Narrative: 47-year-old male complains of lower abdominal pain. Patient has history of C-spine injury resulting in neurogenic bladder and suprapubic cath. Patient started having lower abdominal pain about 5 days ago. Patient states that usually he has abdominal pain with UTI. Patient was seen in emergency room 4 days ago. UA grew Pseudomonas. Patient was given prescription for Macrobid at that time. Patient states that he was unable to fill the prescription. Patient returned to the emergency room 2 days ago with complaints of abdominal pain again. Patient was given prescription for Cipro. Patient states that he has been unable to fill the prescription. Patient states that he had persistent lower abdominal pain. Patient denies any headache. Patient denies any chest pain or shortness of breath. Patient denies any nausea vomiting diarrhea. Patient was advised to have Elizabeth catheter removed and replaced with a new Elizabeth cath. Patient refused the procedure in the ED. Patient wanted to wait to see his urologist for Elizabeth catheter placement. Complaint: Reports other (Lower abdominal pain) Onset (ago): day(s) Duration: constant Location: Reports abdomen Severity: moderate Severity scale (1-10): 7 Quality: Reports aching and sharp Relieving factors: none Exacerbating factors: none Reports indwelling catheter Reports denies other symptoms Related Data Previous Rx's Medication Instructions Recorded acidophilus-sporogenes 1 tab PO TID #60 tab 09/08/18 [Acidophilus Ex Str (L. sporog)] ampicillin 500 mg PO Q6H #56 cap 09/08/18 cefepime 2,000 mg IV Q12H each 09/08/18 hydrocodone-acetaminophen 1 tab PO Q6H PRN #20 tab 09/08/18 Allergies Allergy/AdvReac Type Severity Reaction Status Date / Time No Known Allergies Allergy Verified 08/31/18 09:16 Review of Systems ROS: all other systems reviewed are negative [facility] Medical History Medical History Cervical spine fracture (Acute) Hypertension (Acute) Muscle spasm (Acute) Suprapubic catheter (Acute) UTI (urinary tract infection) (Acute) Social History Social History Substance History: Active Abuse Second Hand Smoke Exposure: Yes Smoking Status: Current every day smoker Tobacco Type: Cigarettes How Often Do You Have a Drink Containing Alcohol: Never Recent Travel in [facility] within the Last 8 Weeks: No Recent Out of Country Travel within the Last 8 Weeks: No Substance Abuse Detail Marijuana: Substance Use Status: Active Route Used Substance Abuse: Inhalation Last Used: TODAY Immunization History Tetanus Immunization: <5 Years Exam Narrative Exam Narrative: GENERAL: Well-nourished, well-developed patient. SKIN: Focused skin assessment warm/dry. HEAD: Normocephalic. EYES: No scleral icterus. No injection or drainage. NECK: Supple, trachea midline. No JVD or lymphadenopathy. CARDIOVASCULAR: Regular rate and rhythm without murmurs, gallops, or rubs. RESPIRATORY: Breath sounds equal bilaterally. No accessory muscle use. GASTROINTESTINAL: Abdomen soft, nondistended. Patient has mild to moderate tenderness on palpation lower abdomen. Suprapubic cath in place. MUSCULOSKELETAL: No cyanosis, or edema. BACK: Nontender without obvious deformity. No CVA tenderness. Course Initial Documented Vital Signs Temperature 98.0 F 09/04/18 23:10 Pulse Rate 68 09/04/18 23:10 Respiratory Rate 19 09/04/18 23:10 Blood Pressure 162/90 H 09/04/18 23:10 Pulse Oximetry 100 09/04/18 23:10 Last Documented Vital Signs Temperature 98.6 F 09/08/18 11:25 Pulse Rate 62 09/08/18 11:25 Respiratory Rate 20 09/08/18 11:25 Blood Pressure 157/106 H 09/08/18 11:25 Pulse Oximetry 99 09/08/18 11:25 Medical Decision Making [facility] Narrative Medical decision making narrative: 47-year-old male with history of neurogenic bladder and suprapubic cath returning to ED to see the third time for UTI. Patient has not filled prescription after the last 2 visits in the ED. Patient wants to wait to see his urologist for Elizabeth catheter replacement. Levaquin 750 mg p.o. given. Toradol 60 mg IM given. 5:53 AM I was told by the charge nurse that patient urine culture result came back and does not show sensitivity to the antibiotic that he was discharged home on. In fact all the antibiotic medications that the bacteria is sensitive to or by parenteral administration. I ordered blood test results which have been reviewed by me and within acceptable limits. I have given him a dose of IV Azactam based on the sensitivity profile. Patient will require admission. Awaiting for the hospitalist to call back. Medical Screen Exam Complete: Yes Emergency Medical Condition: Yes Differential Diagnosis Differential Diagnosis: Differential diagnosis including UTI, pyelonephritis, nephrolithiasis. Lab Data Result diagrams: 09/06/18 06:27 09/06/18 06:27 Lab Results 09/05/18 09/05/18 09/05/18 Range/Units 05:00 05:00 05:02 WBC 5.8 (4.0-11.0) th/mm3 RBC 4.37 L (4.50-5.90) mil/mm3 Hgb 13.2 (13.0-17.0) gm/dL Hct 39.4 (39.0-51.0) % MCV 90.3 (80.0-100.0) fL MCH 30.1 (27.0-34.0) pg MCHC 33.3 (32.0-36.0) % RDW 12.5 (11.6-17.2) % Plt Count 153 (150-450) th/mm3 MPV 8.7 (7.0-11.0) fL Neut % (Auto) 64.1 (16.0-70.0) % Lymph % (Auto) 22.6 (9.0-44.0) % [place] % (Auto) 6.5 (0.0-8.0) % Eos % (Auto) 6.0 H (0.0-4.0) % Baso % (Auto) 0.8 (0.0-2.0) % Neut # (Auto) 3.7 (1.8-7.7) th/mm3 Lymph # (Auto) 1.3 (1.0-4.8) th/mm3 [place] # (Auto) 0.4 (0.0-0.9) th/mm3 Eos # (Auto) 0.3 (0.0-0.4) th/mm3 Baso # (Auto) 0.0 (0.0-0.2) th/mm3 WBC Differential . Differential Comment Auto diff final Sodium 140 (136-145) meq/L Potassium 4.0 (3.5-5.1) meq/L Chloride 109 H (98-107) meq/L Carbon Dioxide 26.3 (21.0-32.0) meq/L Anion Gap 5 (5-15) meq/L BUN 13 (7-18) mg/dL Creatinine 1.29 (0.60-1.30) mg/dL Estimated GFR 72 L (>89) mL/min Random Glucose 89 (74-106) mg/dL Calcium 9.1 (8.5-10.1) mg/dL Total Bilirubin (0.2-1.0) mg/dL AST (15-37) U/L ALT (12-78) U/L Alkaline Phosphatase (45-117) U/L Total Protein (6.4-8.2) g/dL Albumin (3.4-5.0) g/dL Urine Color Evi (Yellw/Straw) Urine Clarity Hazy H (Clear) Urine pH 5.0 (5.0-8.5) Ur Specific [place] 1.011 (1.002-1.035) Urine Protein 30 H (Neg-Trace) mg/dL Urine Glucose (UA) Negative (Negative) mg/dL Urine Ketones Negative (Negative) mg/dL Urine Occult Blood Large H (Negative) Urine Nitrate Positive H (Negative) Urine Bilirubin Negative (Negative) Urine Urobilinogen Less than 2 (Less than 2) mg/dL Ur Leukocyte Esterase Large H (Negative) Urine RBC 76 H (0-3) /hpf Urine WBC 42 H (0-5) /hpf Ur Squamous Epith Cells <1 (0-5) /hpf Amorphous Sediment Rare H (None) /hpf Hyaline Casts 1 (0-3) /lpf Urine Mucus Few H (Occasional) /lpf Micro UA Comment Cath-culture ind Ur Microscopic Review Not Reportable Urine Culture Comments Cath-cult indicated 09/06/18 09/06/18 Range/Units 06:27 06:27 WBC 5.0 (4.0-11.0) th/mm3 RBC 4.76 (4.50-5.90) mil/mm3 Hgb 14.3 (13.0-17.0) gm/dL Hct 43.4 (39.0-51.0) % MCV 91.1 (80.0-100.0) fL MCH 30.0 (27.0-34.0) pg MCHC 33.0 (32.0-36.0) % RDW 12.5 (11.6-17.2) % Plt Count 175 (150-450) th/mm3 MPV 9.2 (7.0-11.0) fL Neut % (Auto) 51.5 (16.0-70.0) % Lymph % (Auto) 34.6 (9.0-44.0) % [place] % (Auto) 7.9 (0.0-8.0) % Eos % (Auto) 5.2 H (0.0-4.0) % Baso % (Auto) 0.8 (0.0-2.0) % Neut # (Auto) 2.6 (1.8-7.7) th/mm3 Lymph # (Auto) 1.7 (1.0-4.8) th/mm3 [place] # (Auto) 0.4 (0.0-0.9) th/mm3 Eos # (Auto) 0.3 (0.0-0.4) th/mm3 Baso # (Auto) 0.0 (0.0-0.2) th/mm3 WBC Differential . Differential Comment Auto diff final Sodium 141 (136-145) meq/L Potassium 3.5 (3.5-5.1) meq/L Chloride 108 H (98-107) meq/L Carbon Dioxide 26.9 (21.0-32.0) meq/L Anion Gap 6 (5-15) meq/L BUN 13 (7-18) mg/dL Creatinine 1.19 (0.60-1.30) mg/dL Estimated GFR 79 L (>89) mL/min Random Glucose 67 L (74-106) mg/dL Calcium 9.0 (8.5-10.1) mg/dL Total Bilirubin 1.6 H (0.2-1.0) mg/dL AST 13 L (15-37) U/L ALT 12 (12-78) U/L Alkaline Phosphatase 74 (45-117) U/L Total Protein 7.8 (6.4-8.2) g/dL Albumin 3.3 L (3.4-5.0) g/dL Urine Color (Yellw/Straw) Urine Clarity (Clear) Urine pH (5.0-8.5) Ur Specific [place] (1.002-1.035) Urine Protein (Neg-Trace) mg/dL Urine Glucose (UA) (Negative) mg/dL Urine Ketones (Negative) mg/dL Urine Occult Blood (Negative) Urine Nitrate (Negative) Urine Bilirubin (Negative) Urine Urobilinogen (Less than 2) mg/dL Ur Leukocyte Esterase (Negative) Urine RBC (0-3) /hpf Urine WBC (0-5) /hpf Ur Squamous Epith Cells (0-5) /hpf Amorphous Sediment (None) /hpf Hyaline Casts (0-3) /lpf Urine Mucus (Occasional) /lpf Micro UA Comment Ur Microscopic Review Urine Culture Comments Discharge Plan Discharge Disposition Patient Disposition: 30 Still Patient Discharge Condition Condition: Stable Discharge Order Discharge Orders: Discharge Order (Routine); Ordered 09/08/18 Ordered By: John Hess ED Use Only Admit Order (Routine); Ordered 09/05/18 Ordered By: Yamileth Ariza Discharge Details Anticipated Discharge Date: 09/04/18 Diagnosis: Acute UTI Physicians Team ED Provider: Yamileth Ariza Primary Care Provider: Primary Care Physici,No Attending Provider: John Hess Other Providers: Alissa Simon ; [employer] ; [facility] ; Nestor Garcia ; [employer] Status ED Status: Left Department Discharge Information Discharge Date/Time: 09/05/18 07:30
[2018-09-05] MEDS ORDERED: Acetaminophen 325 MG Tablet PO ONE (02:12)
[2018-09-05] MEDS ORDERED: Aztreonam Inj 2 GM in Sodium Chloride 0.9% Inj 100 ML IV.SIG ONE (04:41)
[2018-09-05 05:13] LABS: Baso % (Auto) 0.8 % (0.0-2.0); Eos # (Auto) 0.3 th/mm3 (0.0-0.4); Hematocrit 39.4 % (39.0-51.0); Hemoglobin 13.2 gm/dL (13.0-17.0); Lymph # (Auto) 1.3 th/mm3 (1.0-4.8); Lymph % (Auto) 22.6 % (9.0-44.0); Mean Corpuscular HGB Conc 33.3 % (32.0-36.0); Mean Corpuscular Hemoglobin 30.1 pg (27.0-34.0); Mean Corpuscular Volume 90.3 fL (80.0-100.0); Mean Platelet Volume 8.7 fL (7.0-11.0); Mono # (Auto) 0.4 th/mm3 (0.0-0.9); Mono % (Auto) 6.5 % (0.0-8.0); Neut # (Auto) 3.7 th/mm3 (1.8-7.7); Neut % (Auto) 64.1 % (16.0-70.0); Platelet Count 153 th/mm3 (150-450); Red Blood Count 4.37 mil/mm3 (4.50-5.90); Red Cell Distribution Width 12.5 % (11.6-17.2); White Blood Count 5.8 th/mm3 (4.0-11.0)
[2018-09-05 05:23] LABS: Amorphous Sediment,Urine Rare /hpf; Bilirubin,Urine Negative (Negative); Clarity,Urine Hazy (Clear); Color,Urine Amber (Yellw/Straw); Glucose,Urine (UA) Negative (Negative); Hyaline Casts,Urine 1 /lpf (0-3); Leukocyte Esterase,Urine Large (Negative); Mucus,Urine Few /lpf (Occasional); Nitrite,Urine Positive (Negative); Specific Gravity,Urine 1.011 (1.002-1.035); Squamous Epithelial Cell,Urine <1 /hpf (0-5)
[2018-09-05 05:32] LABS: Calcium 9.1 mg/dL (8.5-10.1); Carbon Dioxide 26.3 meq/L (21.0-32.0)
[2018-09-05] MEDS ORDERED: Bisacodyl 10 MG Supp RECTAL PRN (06:14)
[2018-09-05] MEDS ORDERED: Acetaminophen 325 MG Tablet PO PRN (06:14)
[2018-09-05] MEDS: Sod Chloride 0.9% Inj 1,000 ML IV.CONT SCH ×2 (06:38→18:15)
--- NOTE | 2018-09-05 08:50 | P.HP ---
History of Present Illness Primary Care Physician: No Primary Care Physician Chief Complaint: Abdominal pain History of Present Illness: This is a pleasant 47 y/o male who came to ER with lower abdominal pain, he has C spine injury with secondary Neurogenic bladder, and suprapubic cath. Patient started having lower abdominal pain about 5 days ago. Patient states that usually he has abdominal pain with UTI. Patient was seen in emergency room 4 days ago. UA grew Pseudomonas. Patient was given prescription for Macrobid at that time. Patient states that he was unable to fill the prescription. Patient return to the emergency room 2 days ago with complaints of abdominal pain again. Patient was given prescription for Cipro. Patient states that he has been unable to fill the prescription. Patient states that he had persistent lower abdominal pain. Patient denies any headache. Patient denies any chest pain or shortness of breath. Patient denies any nausea vomiting diarrhea. Patient was advised to have Elizabeth catheter removed and replaced with a new Elizabeth cath. Patient refused the procedure in the ED. Patient wanted to wait to see his urologist for Elizabeth catheter placement. Abdominal pain as a constant pain, 7/10 in intensity, as a Sharp sensation. he has Hypertension, Tobacco dependence, Marijuana abuse. Review of Systems All other systems reviewed negative except as stated in HPI PMFSH - History History Provided By: Patient - Medical History Medical History: Medical History (Last Reviewed 09/04/18 @ 23:44 by Ricardo Cobian MD) Cervical spine fracture Hypertension Muscle spasm Suprapubic catheter UTI (urinary tract infection) - Surgical History Surgical History: Surgical History (Last Updated 09/05/18 @ 12:59 by Van Figueroa MD) H/O cervical spine surgery - Family History Family History: Family History (Last Updated 09/05/18 @ 13:00 by Van Figueroa MD) Father Family history of cancer - Tobacco History Second Hand Smoke Exposure: Yes Tobacco Use In Past 30 Days: Yes Smoking Status: Current every day smoker Tobacco Type: Cigarettes - Alcohol History How Often Do You Have a Drink Containing Alcohol: Never - Substance Use History Substance History: Active Abuse - Substance Use Type Marijuana Status: Active Route Used: Inhalation Last Used: TODAY - Travel History Recent Travel in the [facility] Within the Last 8 Weeks: No Recent Travel Out of the Country Within the Last 8 Weeks: No - Immunization History Tetanus Immunization: <5 Years Medications and Allergies Active Medications: Active Medications Acetaminophen (Tylenol) 650 mg PO Q4H PRN PRN Reason: Temp > 100.4 Al Hydroxide/Mg Hydroxide (Milk Of Magnesia Liq) 30 ml PO Q12H PRN PRN Reason: Mild Constipation Bisacodyl (Dulcolax Supp) 10 mg RECTAL DAILY PRN PRN Reason: SEVERE CONSITIPATION Sodium Chloride (Ns Inj) 1,000 mls @ 100 mls/hr IV.CONT .Q10H [facility] Last Admin: 09/05/18 06:38 Dose: 100 mls/hr Lactulose (Lactulose Liq) 30 ml PO DAILY PRN PRN Reason: SEVERE CONSITIPATION Ondansetron HCl (Zofran Inj) 4 mg IV.PUSH Q6H PRN PRN Reason: NAUSEA OR VOMITING Senna/Docusate Sodium (Carolynn-Colace) 1 tab PO BID [facility] Sennosides (Senokot) 17.2 mg PO Q12H PRN PRN Reason: Moderate Constipation Allergies Allergy/AdvReac Type Severity Reaction Status Date / Time No Known Allergies Allergy Verified 08/31/18 09:16 Exam Vital signs: Vital Signs 09/04/18 23:10 09/05/18 04:56 09/05/18 05:00 Temperature 98.0 F Pulse Rate 68 64 65 Respiratory Rate 19 16 16 Blood Pressure 162/90 H 125/68 129/76 Pulse Oximetry 100 98 98 09/05/18 06:00 09/05/18 07:31 Temperature Pulse Rate 50 L 64 Respiratory Rate 16 15 Blood Pressure 154/96 H 120/66 Pulse Oximetry 97 99 Intake & Output 09/04/18 09/05/18 09/05/18 18:59 06:59 18:59 Intake Total 100 / 100 Balance 100 / 100 Weight 58.967 kg Intake: IV 100 / 100 Azactam Inj 2 GM In NS Inj 100 100 / 100 ML @ 200 mls/hr IV.SIG ONCE ONE Rx#:[id number] Narrative: GENERAL: well-developed patient, no acute distress. SKIN: Focused skin assessment warm/dry. HEAD: Normocephalic. EYES: No scleral icterus. No injection or drainage. NECK: Supple, trachea midline. No JVD or lymphadenopathy. CARDIOVASCULAR: Regular rate and rhythm without murmurs, gallops, or rubs. RESPIRATORY: Breath sounds equal bilaterally. No accessory muscle use. GASTROINTESTINAL: Abdomen soft, nondistended. Patient has mild to moderate tenderness on palpation lower abdomen. Suprapubic cath in place. MUSCULOSKELETAL: No cyanosis, or edema. BACK: Nontender without obvious deformity. No CVA tenderness. Results - Labs CBC & Chem 7: 09/05/18 05:00 09/05/18 05:00 Labs: Laboratory Results - last 24 hr 09/05/18 09/05/18 09/05/18 05:00 05:00 05:02 WBC 5.8 RBC 4.37 L Hgb 13.2 Hct 39.4 MCV 90.3 MCH 30.1 MCHC 33.3 RDW 12.5 Plt Count 153 MPV 8.7 Neut % (Auto) 64.1 Lymph % (Auto) 22.6 [place] % (Auto) 6.5 Eos % (Auto) 6.0 H Baso % (Auto) 0.8 Neut # (Auto) 3.7 Lymph # (Auto) 1.3 [place] # (Auto) 0.4 Eos # (Auto) 0.3 Baso # (Auto) 0.0 WBC Differential . Differential Comment Auto diff final Sodium 140 Potassium 4.0 Chloride 109 H Carbon Dioxide 26.3 Anion Gap 5 BUN 13 Creatinine 1.29 Estimated GFR 72 L Random Glucose 89 Calcium 9.1 Urine Color Evi Urine Clarity Hazy H Urine pH 5.0 Ur Specific [place] 1.011 Urine Protein 30 H Urine Glucose (UA) Negative Urine Ketones Negative Urine Occult Blood Large H Urine Nitrate Positive H Urine Bilirubin Negative Urine Urobilinogen Less than 2 Ur Leukocyte Esterase Large H Urine RBC 76 H Urine WBC 42 H Ur Squamous Epith Cells <1 Amorphous Sediment Rare H Hyaline Casts 1 Urine Mucus Few H Micro UA Comment Cath-culture ind Ur Microscopic Review Not Reportable Urine Culture Comments Cath-cult indicated Caprini VTE Risk Assessment Caprini VTE Risk Assessment: Moderate/High Risk (score >= 2) Caprini Risk Assessment Model: Point Value = 1 Point Value = 2 Point Value = 3 Point Value = 5 Age 41-60 Minor surgery BMI > 25 kg/m2 Swollen legs Varicose veins or History of unexplained or recurrent spontaneous Oral contraceptives or hormone replacement Sepsis (< 1 month) Serious lung disease, including pneumonia (< 1 month) Abnormal pulmonary function Acute myocardial infarction Congestive heart failure (< 1 month) History of inflammatory bowel disease Medical patient at bed rest Age 61-74 Arthroscopic surgery Major open surgery (> 45 min) Laparoscopic surgery (> 45 min) Malignancy Confined to bed (> 72 hours) Immobilizing plaster cast Central venous access Age >= 75 History of VTE Family history of VTE Factor V Leiden Prothrombin [id number] Lupus anticoagulant Anticardiolipin antibodies Elevated serum homocysteine Heparin-induced thrombocytopenia Other congenital or acquired thrombophilia Stroke (< 1 month) Elective arthroplasty Hip, pelvis, or leg fracture Acute spinal cord injury (< 1 month) Prophylaxis Regimen: Total Risk Factor Score Risk Level Prophylaxis Regimen 0-1 Low Early ambulation 2 Moderate Order ONE of the following: *Sequential Compression Device (SCD) *Heparin 5000 units SQ BID 3-4 Higher Order ONE of the following medications: *Heparin 5000 units SQ TID *Enoxaparin/Lovenox 40 mg SQ daily (WT < 150 kg, CrCl > 30 mL/min) *Enoxaparin/Lovenox 30 mg SQ daily (WT < 150 kg, CrCl > 10-29 mL/min) *Enoxaparin/Lovenox 30 mg SQ BID (WT < 150 kg, CrCl > 30 mL/min) AND/OR *Sequential Compression Device (SCD) 5 or more Highest Order ONE of the following medications: *Heparin 5000 units SQ TID (Preferred with Epidurals) *Enoxaparin/Lovenox 40 mg SQ daily (WT < 150 kg, CrCl > 30 mL/min) *Enoxaparin/Lovenox 30 mg SQ daily (WT < 150 kg, CrCl > 10-29 mL/min) *Enoxaparin/Lovenox 30 mg SQ BID (WT < 150 kg, CrCl > 30 mL/min) AND *Sequential Compression Device (SCD) Assessment and Plan - Plan 1. Spinal Cord Injury with secondary Neurogenic bladder and history of suprapubic catheter asked for Urology specialist for Elizabeth cath change 2. Acute UTI Azactam given in ER, awaiting for Urine culture and sensitivity. WBC 5.8. ID specialist following 3. Tobacco dependence/Marijuana abuse strongly recommended to stop smoking and abusing marijuana 4. Hypertension not found any medicine for Hypertension started on Amlodipine and Clonidine DVT prophylaxis with SCDs due to probable procedure to follow. Code Status: Full code. Discussed Condition With: Patient and Nurse Miss Karimi Discharge Planning: Once cleared by specialists.
[2018-09-05] MEDS: Senna/Docusate Sodium 8.6/50 MG Tablet PO SCH ×2 (10:10→22:49)
--- NOTE | 2018-09-05 19:06 | P.PNADD ---
Addendum to Inpatient Note Additional information: seen aroaleksandr 1900 full note to follow
--- NOTE | 2018-09-05 19:06 | P.CONID ---
History of Present Illness Service: ID Consult date: 09/05/18 Requesting Physician: Jolie Gillette Reason for Consult: UTI, pseudomonas Primary Care Provider: No Primary Care Physician Chief Complaint: Abdominal pain History of Present Illness: 47 yo male in incomplete tetraplegia sp C spine traumatic injury he has neurogenic bladder suprapubic cath since March he changes it every month He has recurrent UTIs feels as burning, no fever last time he was on cipro - not helping his symptoms He presented with above symptoms UA abnormal: pyuria, + leukocyte esterase, nitrate+ His urine clx grew pseudomonas R to quinolones Started on azactam Review of Systems All other systems reviewed negative except as stated in HPI PMFSH - History History Provided By: Patient - Medical History Medical History: Medical History (Last Reviewed 09/06/18 @ 06:22 by Alissa Simon MD) Cervical spine fracture Hypertension Muscle spasm Suprapubic catheter UTI (urinary tract infection) - Surgical History Surgical History: Surgical History (Last Reviewed 09/06/18 @ 06:22 by Alissa Simon MD) H/O cervical spine surgery - Family History Family History: Family History (Last Reviewed 09/06/18 @ 06:22 by Alissa Simon MD) Father Family history of cancer - Social History I have reviewed the patient's Social History: Yes - Tobacco History Second Hand Smoke Exposure: Yes Tobacco Use In Past 30 Days: Yes Smoking Status: Current every day smoker Tobacco Type: Cigarettes - Alcohol History How Often Do You Have a Drink Containing Alcohol: Never - Substance Use History Substance History: Active Abuse - Substance Use Type Marijuana Status: Active Route Used: Inhalation Last Used: TODAY - Travel History Recent Travel in the [place] Within the Last 8 Weeks: No Recent Travel Out of the Country Within the Last 8 Weeks: No - Immunization History Tetanus Immunization: <5 Years Medications and Allergies Active Medications: Active Medications Acetaminophen (Tylenol) 650 mg PO Q4H PRN PRN Reason: Temp > 100.4 Al Hydroxide/Mg Hydroxide (Milk Of [place] Liq) 30 ml PO Q12H PRN PRN Reason: Mild Constipation Bisacodyl (Dulcolax Supp) 10 mg RECTAL DAILY PRN PRN Reason: SEVERE CONSITIPATION Sodium Chloride (Ns Inj) 1,000 mls @ 100 mls/hr IV.CONT .Q10H [facility] Last Admin: 09/05/18 18:15 Dose: 100 mls/hr Aztreonam 1,000 mg/ Sodium (Chloride) 100 mls @ 200 mls/hr IV.SIG Q6H [facility] Last Infusion: 09/05/18 18:42 Dose: Infused Lactulose (Lactulose Liq) 30 ml PO DAILY PRN PRN Reason: SEVERE CONSITIPATION Ondansetron HCl (Zofran Inj) 4 mg IV.PUSH Q6H PRN PRN Reason: NAUSEA OR VOMITING Senna/Docusate Sodium (Carolynn-Colace) 1 tab PO BID [facility] Last Admin: 09/05/18 10:10 Dose: Not Given Sennosides (Senokot) 17.2 mg PO Q12H PRN PRN Reason: Moderate Constipation Tramadol HCl (Ultram) 50 mg PO Q6H PRN PRN Reason: PAIN SCALE 1 TO 10 Last Admin: 09/05/18 11:39 Dose: 50 mg Allergies Allergy/AdvReac Type Severity Reaction Status Date / Time No Known Allergies Allergy Verified 08/31/18 09:16 Exam Vital signs: Vital Signs 09/04/18 23:10 09/05/18 04:56 09/05/18 05:00 Temperature 98.0 F Pulse Rate 68 64 65 Respiratory Rate 19 16 16 Blood Pressure 162/90 H 125/68 129/76 Pulse Oximetry 100 98 98 09/05/18 06:00 09/05/18 07:31 09/05/18 08:00 Temperature 98.1 F Pulse Rate 50 L 64 54 L Respiratory Rate 16 15 18 Blood Pressure 154/96 H 120/66 158/82 H Pulse Oximetry 97 99 96 09/05/18 12:00 09/05/18 12:09 09/05/18 13:59 Temperature 98.1 F Pulse Rate 55 L Respiratory Rate 18 18 Blood Pressure 190/111 H 132/80 Pulse Oximetry 95 09/05/18 16:00 Temperature 98.5 F Pulse Rate 89 Respiratory Rate 22 Blood Pressure 189/103 H Pulse Oximetry 97 Intake & Output 09/05/18 09/05/18 09/06/18 06:59 18:59 06:59 Intake Total 100 / 100 1200 / 1200 Balance 100 / 100 1200 / 1200 Weight 58.967 kg Intake: IV 100 / 100 1200 / 1200 NS Inj 1,000 ML @ 100 mls/hr IV 1000 / 1000 .CONT .Q10H [facility] Rx#:[id number] Azactam Inj 1,000 MG In NS Inj 200 / 200 100 ML @ 200 mls/hr IV.SIG Q6H [facility] Rx#:[id number] Azactam Inj 2 GM In NS Inj 100 100 / 100 ML @ 200 mls/hr IV.SIG ONCE ONE Rx#:[id number] - Constitutional no acute distress, thin - Routine HEENT Exam Head: Present: normocephalic, atraumatic Eye: Present: EOMI, PERRL. Absent: conjunctival icterus ENT: Present: mucous membranes moist, oropharynx clear - Routine Neck Exam Present: supple. Absent: lymphadenopathy - Routine Respiratory Exam Present: CTA bilaterally. Absent: accessory muscle use, decreased breath sounds - Routine Cardiovascular Exam Present: RRR, S1, S2. Absent: murmur, gallop, rubs - Routine Abdominal Exam Present: soft, normoactive bowel sounds, distended (mildly). Absent: tenderness , organomegaly, mass - Routine Exam Comments: suprapubic cath in place - Routine Extremities Exam Absent: cyanosis, clubbing, edema, normal capillary refill - Routine Skin Exam Present: intact, warm. Absent: cyanosis, rash - Routine Neurological Exam Present: alert, oriented X3, CN II-XII intact, sensory deficit, motor deficit, moving all extremities Results - Labs CBC & Chem 7: 09/05/18 05:00 09/05/18 05:00 Labs: Laboratory Results - last 24 hr 09/05/18 09/05/18 09/05/18 05:00 05:00 05:02 WBC 5.8 RBC 4.37 L Hgb 13.2 Hct 39.4 MCV 90.3 MCH 30.1 MCHC 33.3 RDW 12.5 Plt Count 153 MPV 8.7 Neut % (Auto) 64.1 Lymph % (Auto) 22.6 [place] % (Auto) 6.5 Eos % (Auto) 6.0 H Baso % (Auto) 0.8 Neut # (Auto) 3.7 Lymph # (Auto) 1.3 [place] # (Auto) 0.4 Eos # (Auto) 0.3 Baso # (Auto) 0.0 WBC Differential . Differential Comment Auto diff final Sodium 140 Potassium 4.0 Chloride 109 H Carbon Dioxide 26.3 Anion Gap 5 BUN 13 Creatinine 1.29 Estimated GFR 72 L Random Glucose 89 Calcium 9.1 Urine Color Evi Urine Clarity Hazy H Urine pH 5.0 Ur Specific [place] 1.011 Urine Protein 30 H Urine Glucose (UA) Negative Urine Ketones Negative Urine Occult Blood Large H Urine Nitrate Positive H Urine Bilirubin Negative Urine Urobilinogen Less than 2 Ur Leukocyte Esterase Large H Urine RBC 76 H Urine WBC 42 H Ur Squamous Epith Cells <1 Amorphous Sediment Rare H Hyaline Casts 1 Urine Mucus Few H Micro UA Comment Cath-culture ind Ur Microscopic Review Not Reportable Urine Culture Comments Cath-cult indicated Assessment and Plan - Plan SCI Neurogenic bladder SP cath recurrent UTIs PSAE UTI, R quinolones, no oral options change to cefepime 2 gm q8-12 hrs cont 2 weeks PICC
[2018-09-06] MEDS: Sod Chloride 0.9% Inj 1,000 ML IV.CONT SCH ×3 (03:10→23:37)
[2018-09-06 08:09] LABS: Baso % (Auto) 0.8 % (0.0-2.0); Eos # (Auto) 0.3 th/mm3 (0.0-0.4); Eos % (Auto) 5.2 % (0.0-4.0); Hematocrit 43.4 % (39.0-51.0); Hemoglobin 14.3 gm/dL (13.0-17.0); Lymph # (Auto) 1.7 th/mm3 (1.0-4.8); Lymph % (Auto) 34.6 % (9.0-44.0); Mean Corpuscular Volume 91.1 fL (80.0-100.0); Mean Platelet Volume 9.2 fL (7.0-11.0); Mono # (Auto) 0.4 th/mm3 (0.0-0.9); Mono % (Auto) 7.9 % (0.0-8.0); Neut # (Auto) 2.6 th/mm3 (1.8-7.7); Neut % (Auto) 51.5 % (16.0-70.0); Platelet Count 175 th/mm3 (150-450); Red Blood Count 4.76 mil/mm3 (4.50-5.90); Red Cell Distribution Width 12.5 % (11.6-17.2)
[2018-09-06 08:36] LABS: Alanine Aminotransferase 12 U/L (12-78); Albumin 3.3 g/dL (3.4-5.0); Anion Gap 6 meq/L (5-15); Aspartate Aminotransferase 13 U/L (15-37); Blood Urea Nitrogen 13 mg/dL (7-18); Carbon Dioxide 26.9 meq/L (21.0-32.0); Chloride 108 meq/L (98-107); Glomerular Filtration Rate 79 mL/min (>89); Glucose,Random 67 mg/dL (74-106); Potassium 3.5 meq/L (3.5-5.1); Sodium 141 meq/L (136-145)
[2018-09-06 08:38] LABS: Alkaline Phosphatase 74 U/L (45-117); Total Protein 7.8 g/dL (6.4-8.2)
--- NOTE | 2018-09-06 12:08 | P.PNIM ---
Subjective Interval history: No complaints from the patient today. Abdominal pain not fully resolved but has some improvement. Suprapubic catheter has not yet been changed, but will be prior to discharge. Physical Exam Vital signs: Vital Signs 09/05/18 12:09 09/05/18 13:59 09/05/18 16:00 Temperature 98.5 F Pulse Rate 89 Respiratory Rate 18 22 Blood Pressure 132/80 189/103 H Pulse Oximetry 97 09/05/18 20:00 09/06/18 08:09 09/06/18 11:06 Temperature 98.5 F 97.6 F 97.4 F L Pulse Rate 52 L 56 L 62 Respiratory Rate 16 20 20 Blood Pressure 158/96 H 114/80 80/46 L Pulse Oximetry 98 95 94 L 09/06/18 11:24 Temperature Pulse Rate Respiratory Rate Blood Pressure 88/50 L Pulse Oximetry Intake & Output 09/05/18 09/06/18 09/06/18 18:59 06:59 18:59 Intake Total 1200 / 1200 1580 / 1580 100 / 100 Output Total 2800 / 2800 Balance 1200 / 1200 -1220 / -1220 100 / 100 Intake: IV 1200 / 1200 1100 / 1100 100 / 100 NS Inj 1,000 ML @ 100 mls/hr IV 1000 / 1000 1000 / 1000 .CONT .Q10H [facility] Rx#:[id number] Azactam Inj 1,000 MG In NS Inj 200 / 200 100 / 100 100 ML @ 200 mls/hr IV.SIG Q6H [facility] Rx#:[id number] Maxipime Inj 2,000 MG In NS Inj 100 / 100 100 ML @ 200 mls/hr IV.SIG Q8H [facility] Rx#:[id number] Oral 480 / 480 Output: Urine Amount (Catheter) 2800 / 2800 Suprapubic 2800 / 2800 Other: Bladder Irrigation Fluid - Amount Drained Suprapubic 1,800 Narrative: GENERAL: NAD, A&Ox3 HEAD: Normocephalic. NECK: Supple, trachea midline. No lymphadenopathy. EYES: No scleral icterus. No injection or drainage. CARDIOVASCULAR: Regular rate and rhythm without murmurs, gallops, or rubs. RESPIRATORY: Breath sounds equal bilaterally. No accessory muscle use. GASTROINTESTINAL: Abdomen soft, non-tender, nondistended. SupraPubic catheter. MUSCULOSKELETAL: No cyanosis, or edema. SKIN: Warm and dry. NEURO: Paraplegia - Urinary Catheter Management Suprapubic Cath placed during this visit: no Reason for continuing: Chronic Urinary Retention Results - Labs CBC & Chem 7: 09/06/18 06:27 09/06/18 06:27 Laboratory Results - last 24 hr 09/06/18 09/06/18 06:27 06:27 WBC 5.0 RBC 4.76 Hgb 14.3 Hct 43.4 MCV 91.1 MCH 30.0 MCHC 33.0 RDW 12.5 Plt Count 175 MPV 9.2 Neut % (Auto) 51.5 Lymph % (Auto) 34.6 [place] % (Auto) 7.9 Eos % (Auto) 5.2 H Baso % (Auto) 0.8 Neut # (Auto) 2.6 Lymph # (Auto) 1.7 [place] # (Auto) 0.4 Eos # (Auto) 0.3 Baso # (Auto) 0.0 WBC Differential . Differential Comment Auto diff final Sodium 141 Potassium 3.5 Chloride 108 H Carbon Dioxide 26.9 Anion Gap 6 BUN 13 Creatinine 1.19 Estimated GFR 79 L Random Glucose 67 L Calcium 9.0 Total Bilirubin 1.6 H AST 13 L ALT 12 Alkaline Phosphatase 74 Total Protein 7.8 Albumin 3.3 L Microbiology 09/05/18 05:05 Blood - Peripheral Aerobic Blood Culture - Preliminary No growth in 1 day 09/05/18 05:05 Blood - Peripheral Anaerobic Blood Culture - Preliminary No growth in 1 day 09/05/18 05:00 Blood - Peripheral Aerobic Blood Culture - Preliminary No growth in 1 day 09/05/18 05:00 Blood - Peripheral Anaerobic Blood Culture - Preliminary No growth in 1 day Assessment and Plan - Plan 47-year-old male admitted secondary to urinary tract infection with chronic suprapubic catheter secondary to neurogenic bladder related to paraplegia Chronic suprapubic catheter acute urinary tract infection Continue Azactam Follow urine cultures Finalized culture will be needed prior to changing off of IV antibiotics to oral antibiotics and discharging home Suprapubic catheter change in 1-2 days Spinal Cord Injury Paraplegia Neurogenic bladder Supportive care Continue suprapubic catheter Nicotine dependence Patient counseled to quit Marijuana use Patient recommended not to abuse marijuana Hypertension Continue amlodipine Continue clonidine DVT prophylaxis SCDs (possible procedure)
[2018-09-06] MEDS: Senna/Docusate Sodium 8.6/50 MG Tablet PO SCH ×2 (14:00→20:59)
--- NOTE | 2018-09-06 15:07 | P.PNID ---
Subjective Remarks: doing OK no fever Antibiotics: cefepime Allergies/Adverse Reactions: Allergies No Known Allergies Allergy (Verified 08/31/18 09:16) Objective Vital Signs 09/05/18 16:00 09/05/18 20:00 09/06/18 08:09 Temperature 98.5 F 98.5 F 97.6 F Pulse Rate 89 52 L 56 L Respiratory Rate 22 16 20 Blood Pressure 189/103 H 158/96 H 114/80 Pulse Oximetry 97 98 95 09/06/18 11:06 09/06/18 11:24 09/06/18 14:02 Temperature 97.4 F L Pulse Rate 62 60 Respiratory Rate 20 Blood Pressure 80/46 L 88/50 L 158/88 H Pulse Oximetry 94 L Intake & Output 09/05/18 09/06/18 09/06/18 18:59 06:59 18:59 Intake Total 1200 / 1200 1580 / 1580 100 / 100 Output Total 2800 / 2800 Balance 1200 / 1200 -1220 / -1220 100 / 100 Intake: IV 1200 / 1200 1100 / 1100 100 / 100 NS Inj 1,000 ML @ 100 mls/hr IV 1000 / 1000 1000 / 1000 .CONT .Q10H [facility] Rx#:[id number] Azactam Inj 1,000 MG In NS Inj 200 / 200 100 / 100 100 ML @ 200 mls/hr IV.SIG Q6H [facility] Rx#:[id number] Maxipime Inj 2,000 MG In NS Inj 100 / 100 100 ML @ 200 mls/hr IV.SIG Q8H [facility] Rx#:[id number] Oral 480 / 480 Output: Urine Amount (Catheter) 2800 / 2800 Suprapubic 2800 / 2800 Other: Bladder Irrigation Fluid - Amount Drained Suprapubic 1,800 Date of Last Bowel Movement 09/05/18 09/05/18 05:02 Catheterized Urine Urine Culture - Preliminary Pseudomonas species Group D Enterococcus 09/05/18 05:05 Blood - Peripheral Aerobic Blood Culture - Preliminary No growth in 1 day 09/05/18 05:05 Blood - Peripheral Anaerobic Blood Culture - Preliminary No growth in 1 day 09/05/18 05:00 Blood - Peripheral Aerobic Blood Culture - Preliminary No growth in 1 day 09/05/18 05:00 Blood - Peripheral Anaerobic Blood Culture - Preliminary No growth in 1 day Lab - Hematology Results 09/05/18 09/06/18 05:00 06:27 WBC 5.8 5.0 RBC 4.37 L 4.76 Hgb 13.2 14.3 Hct 39.4 43.4 MCV 90.3 91.1 MCH 30.1 30.0 MCHC 33.3 33.0 RDW 12.5 12.5 Plt Count 153 175 MPV 8.7 9.2 Neut % (Auto) 64.1 51.5 Lymph % (Auto) 22.6 34.6 [place] % (Auto) 6.5 7.9 Eos % (Auto) 6.0 H 5.2 H Baso % (Auto) 0.8 0.8 Neut # (Auto) 3.7 2.6 Lymph # (Auto) 1.3 1.7 [place] # (Auto) 0.4 0.4 Eos # (Auto) 0.3 0.3 Baso # (Auto) 0.0 0.0 WBC Differential . . Differential Comment Auto diff final Auto diff final Lab - Chemistry Results 09/05/18 09/06/18 05:00 06:27 Sodium 140 141 Potassium 4.0 3.5 Chloride 109 H 108 H Carbon Dioxide 26.3 26.9 Anion Gap 5 6 BUN 13 13 Creatinine 1.29 1.19 Estimated GFR 72 L 79 L Random Glucose 89 67 L Calcium 9.1 9.0 Total Bilirubin 1.6 H AST 13 L ALT 12 Alkaline Phosphatase 74 Total Protein 7.8 Albumin 3.3 L Physical Exam: GENERAL: NAD SKIN: Warm and dry. HEAD: Atraumatic. Normocephalic. EYES: Pupils equal and round. No scleral icterus. No injection or drainage. ENT: No nasal bleeding or discharge. Mucous membranes pink and moist. NECK: Trachea midline. No JVD. CARDIOVASCULAR: Regular rate and rhythm. RESPIRATORY: No accessory muscle use. Clear to auscultation. Breath sounds equal bilaterally. GASTROINTESTINAL: Abdomen soft, non-tender, nondistended. : SP cath in place urine clear, yellow MUSCULOSKELETAL: Extremities without clubbing, cyanosis, or edema. No obvious deformities. NEUROLOGICAL: Awake and alert. stable motor deficits Normal speech. PSYCHIATRIC: Appropriate mood and affect; Assessment and Plan - Plan SCI Neurogenic bladder SP cath recurrent UTIs PSAE UTI, R quinolones, no oral options repeat clx with enterococci (>100K), PSAE change to cefepime 2 gm q8-12 hrs add levaquine for enterocci coverage cont 2 weeks PICC
[2018-09-06] MEDS ORDERED: Levofloxacin 500 mg Premix Inj 500 MG/100 ML PIGGYBACK IV.SIG SCH (16:00)
[2018-09-07] MEDS: Senna/Docusate Sodium 8.6/50 MG Tablet PO SCH ×2 (08:44→21:57)
--- NOTE | 2018-09-07 09:19 | P.CONNEU ---
History of Present Illness Service: Neurology Primary Care Provider: No Primary Care Physician Chief Complaint: Spasticity History of Present Illness: 47-year-old male with fall in the office with a history of cervical cord injury with resultant spasticity and paraparesis. Chronic pain syndrome. Admitted for UTI. Takes Valium and baclofen for spasticity tramadol for pain but has been feel little more pain recently. Review of Systems All other systems reviewed negative except as stated in HPI PMFSH - History History Provided By: Patient - Medical History Medical History: Medical History (Last Reviewed 09/06/18 @ 06:22 by Alissa Simon MD) Cervical spine fracture Hypertension Muscle spasm Suprapubic catheter UTI (urinary tract infection) - Surgical History Surgical History: Surgical History (Last Reviewed 09/06/18 @ 06:22 by Alissa Simon MD) H/O cervical spine surgery - Family History Family History: Family History (Last Reviewed 09/06/18 @ 06:22 by Alissa Simon MD) Father Family history of cancer - Tobacco History Second Hand Smoke Exposure: Yes Tobacco Use In Past 30 Days: Yes Smoking Status: Current every day smoker Tobacco Type: Cigarettes - Alcohol History How Often Do You Have a Drink Containing Alcohol: Never - Substance Use History Substance History: Active Abuse - Substance Use Type Marijuana Status: Active Route Used: Inhalation Last Used: TODAY - Travel History Recent Travel in the [place] Within the Last 8 Weeks: No Recent Travel Out of the Country Within the Last 8 Weeks: No - Immunization History Tetanus Immunization: <5 Years Medications and Allergies Active Medications: Active Medications Acetaminophen (Tylenol) 650 mg PO Q4H PRN PRN Reason: Temp > 100.4 Al Hydroxide/Mg Hydroxide (Milk Of [place] Liq) 30 ml PO Q12H PRN PRN Reason: Mild Constipation Bisacodyl (Dulcolax Supp) 10 mg RECTAL DAILY PRN PRN Reason: SEVERE CONSITIPATION Sodium Chloride (Ns Inj) 1,000 mls @ 100 mls/hr IV.CONT .Q10H [facility] Last Infusion: 09/07/18 08:43 Dose: 100 mls/hr Cefepime HCl 2,000 mg/ Sodium (Chloride) 100 mls @ 200 mls/hr IV.SIG Q8H [facility] Last Infusion: 09/07/18 07:07 Dose: Infused Levofloxacin/Dextrose (Levaquin 500 Mg Premix Inj) 500 mg in 100 mls @ 100 mls/ hr IV.SIG Q24H [facility] Last Infusion: 09/06/18 18:03 Dose: Infused Lactulose (Lactulose Liq) 30 ml PO DAILY PRN PRN Reason: SEVERE CONSITIPATION Ondansetron HCl (Zofran Inj) 4 mg IV.PUSH Q6H PRN PRN Reason: NAUSEA OR VOMITING Senna/Docusate Sodium (Carolynn-Colace) 1 tab PO BID [facility] Last Admin: 09/07/18 08:44 Dose: Not Given Sennosides (Senokot) 17.2 mg PO Q12H PRN PRN Reason: Moderate Constipation Tramadol HCl (Ultram) 50 mg PO Q6H PRN PRN Reason: PAIN SCALE 1 TO 10 Last Admin: 09/06/18 21:04 Dose: 50 mg Allergies Allergy/AdvReac Type Severity Reaction Status Date / Time No Known Allergies Allergy Verified 08/31/18 09:16 Exam Vital signs: Vital Signs 09/06/18 11:06 09/06/18 11:24 09/06/18 14:02 Temperature 97.4 F L Pulse Rate 62 60 Respiratory Rate 20 Blood Pressure 80/46 L 88/50 L 158/88 H Pulse Oximetry 94 L 09/06/18 17:04 09/06/18 20:00 09/07/18 00:00 Temperature 98.9 F 97.5 F L 97.7 F Pulse Rate 59 L 56 L 52 L Respiratory Rate 18 20 16 Blood Pressure 194/104 H 176/92 H 167/93 H Pulse Oximetry 100 96 94 L 09/07/18 04:00 09/07/18 07:55 Temperature 98.7 F 98.1 F Pulse Rate 56 L 66 Respiratory Rate 12 16 Blood Pressure 114/72 169/102 H Pulse Oximetry 95 99 Intake & Output 09/06/18 09/07/18 09/07/18 18:59 06:59 18:59 Intake Total 1300 / 1300 1370 / 1370 903 / 903 Output Total 500 / 500 650 / 650 Balance 800 / 800 720 / 720 903 / 903 Intake: IV 1300 / 1300 750 / 750 903 / 903 NS Inj 1,000 ML @ 100 mls/hr IV 1000 / 1000 650 / 650 803 / 803 .CONT .Q10H [facility] Rx#:[id number] Maxipime Inj 2,000 MG In NS Inj 200 / 200 100 / 100 100 / 100 100 ML @ 200 mls/hr IV.SIG Q8H [facility] Rx#:[id number] Levaquin 500 mg Premix Inj 500 100 / 100 mg In 100 ml @ 100 mls/hr IV. SIG Q24H [facility] Rx#:[id number] Oral 620 / 620 Output: Urine 650 / 650 Urine Amount (Catheter) 500 / 500 Suprapubic 500 / 500 Other: Bladder Irrigation Fluid - Amount Drained Suprapubic 1,800 Date of Last Bowel Movement 09/05/18 09/07/18 # Bowel Movements 2 Narrative: GENERAL: in NAD, SKIN: Warm and dry. HEAD: Atraumatic. Normocephalic. EYES: Pupils equal and round. No scleral icterus. ENT: No nasal bleeding or discharge. NECK: Trachea midline. CARDIOVASCULAR: Regular rate and rhythm. RESPIRATORY: No accessory muscle use. GASTROINTESTINAL: Abdomen soft, non-tender, nondistended. NEUROLOGICAL: Awake and alert. Oriented x3, no aphasia, extraocular was intact visual boyd full no facial asymmetry, reduced fine finger movements both hands able to raise both upper extremity gravity lower extremities able to raise to gravity briefly mild contracture his fingers spasticity lower greater than upper limbs and lower semi-hyperreflexia with 2-3 beat clonus gait not assessed secondary fall risk reduced pin stocking distribution PSYCHIATRIC: Appropriate mood and affect; insight and judgment normal. - Constitutional no acute distress - Routine HEENT Exam Head: Present: normocephalic Eye: Present: EOMI Results - Labs CBC & Chem 7: 09/06/18 06:27 09/06/18 06:27 Labs: Laboratory Results - last 24 hr 09/05/18 05:02 Urine Color Evi Urine Clarity Hazy H Urine pH 5.0 Ur Specific [place] 1.011 Urine Protein 30 H Urine Glucose (UA) Negative Urine Ketones Negative Urine Occult Blood Large H Urine Nitrate Positive H Urine Bilirubin Negative Urine Urobilinogen Less than 2 Ur Leukocyte Esterase Large H Urine RBC 76 H Urine WBC 42 H Ur Squamous Epith Cells <1 Amorphous Sediment Rare H Hyaline Casts 1 Urine Mucus Few H Micro UA Comment Cath-culture ind Urine Culture Comments Cath-cult indicated Review/Management - Diagnosis (1) Myelopathy Code(s): G95.9 - Disease of spinal cord, unspecified Status: Acute Current Visit: Yes (2) Cervical spinal cord injury Code(s): S14.109A - Unspecified injury at unspecified level of cervical spinal cord, initial encounter Status: Acute Current Visit: Yes (3) Spasticity Code(s): R25.2 - Cramp and spasm Status: Acute Current Visit: Yes - Review/Management Plan: Chronic cervical cord injury with resultant myelopathy, paraparesis and spasticity and chronic pain syndrome Recommendation resume Valium Pain control Therapy May benefit from inpatient rehabilitation [facility] medical service
[2018-09-07] MEDS: diazePAM 5 MG Tablet PO SCH ×2 (10:12→21:57)
--- NOTE | 2018-09-07 11:15 | P.PNIM ---
Subjective Interval history: Primary complaint of pain this morning. Patient had previously been on tramadol. This is upgraded. Plan for cefepime for 2 weeks. PICC line vs Mid Line placement pending. Physical Exam Vital signs: Vital Signs 09/06/18 11:06 09/06/18 11:24 09/06/18 14:02 Temperature 97.4 F L Pulse Rate 62 60 Respiratory Rate 20 Blood Pressure 80/46 L 88/50 L 158/88 H Pulse Oximetry 94 L 09/06/18 17:04 09/06/18 20:00 09/07/18 00:00 Temperature 98.9 F 97.5 F L 97.7 F Pulse Rate 59 L 56 L 52 L Respiratory Rate 18 20 16 Blood Pressure 194/104 H 176/92 H 167/93 H Pulse Oximetry 100 96 94 L 09/07/18 04:00 09/07/18 07:55 Temperature 98.7 F 98.1 F Pulse Rate 56 L 66 Respiratory Rate 12 16 Blood Pressure 114/72 169/102 H Pulse Oximetry 95 99 Intake & Output 09/06/18 09/07/18 09/07/18 18:59 06:59 18:59 Intake Total 1300 / 1300 1370 / 1370 903 / 903 Output Total 500 / 500 650 / 650 Balance 800 / 800 720 / 720 903 / 903 Intake: IV 1300 / 1300 750 / 750 903 / 903 NS Inj 1,000 ML @ 100 mls/hr IV 1000 / 1000 650 / 650 803 / 803 .CONT .Q10H [facility] Rx#:[id number] Maxipime Inj 2,000 MG In NS Inj 200 / 200 100 / 100 100 / 100 100 ML @ 200 mls/hr IV.SIG Q8H [facility] Rx#:[id number] Levaquin 500 mg Premix Inj 500 100 / 100 mg In 100 ml @ 100 mls/hr IV. SIG Q24H [facility] Rx#:[id number] Oral 620 / 620 Output: Urine 650 / 650 Urine Amount (Catheter) 500 / 500 Suprapubic 500 / 500 Other: Bladder Irrigation Fluid - Amount Drained Suprapubic 1,800 Date of Last Bowel Movement 09/05/18 09/07/18 # Bowel Movements 2 Narrative: GENERAL: NAD, A&Ox3 HEAD: Normocephalic. NECK: Supple, trachea midline. No lymphadenopathy. EYES: No scleral icterus. No injection or drainage. CARDIOVASCULAR: Regular rate and rhythm without murmurs, gallops, or rubs. RESPIRATORY: Breath sounds equal bilaterally. No accessory muscle use. GASTROINTESTINAL: Abdomen soft, non-tender, nondistended. MUSCULOSKELETAL: No cyanosis, or edema. SKIN: Warm and dry. NEURO: No focal neurological deficits. Paraplegia. Motor dysfunction in arms and legs. - Urinary Catheter Management Suprapubic Cath placed during this visit: no Reason for continuing: Chronic Urinary Retention Results - Labs CBC & Chem 7: 09/06/18 06:27 09/06/18 06:27 Laboratory Results - last 24 hr 09/05/18 05:02 Urine Color Evi Urine Clarity Hazy H Urine pH 5.0 Ur Specific [place] 1.011 Urine Protein 30 H Urine Glucose (UA) Negative Urine Ketones Negative Urine Occult Blood Large H Urine Nitrate Positive H Urine Bilirubin Negative Urine Urobilinogen Less than 2 Ur Leukocyte Esterase Large H Urine RBC 76 H Urine WBC 42 H Ur Squamous Epith Cells <1 Amorphous Sediment Rare H Hyaline Casts 1 Urine Mucus Few H Micro UA Comment Cath-culture ind Urine Culture Comments Cath-cult indicated Microbiology 09/05/18 05:05 Blood - Peripheral Aerobic Blood Culture - Preliminary No growth in 2 days 09/05/18 05:05 Blood - Peripheral Anaerobic Blood Culture - Preliminary No growth in 2 days 09/05/18 05:00 Blood - Peripheral Aerobic Blood Culture - Preliminary No growth in 2 days 09/05/18 05:00 Blood - Peripheral Anaerobic Blood Culture - Preliminary No growth in 2 days 09/05/18 05:02 Catheterized Urine Urine Culture - Final Pseudomonas aeruginosa Enterococcus faecalis Assessment and Plan - Plan 47-year-old male admitted secondary to urinary tract infection with chronic suprapubic catheter secondary to neurogenic bladder related to paraplegia Pain treatment increased today. Plan for Midline/PICC today. Outpatient IV antibiotics planned. Chronic suprapubic catheter acute urinary tract infection Continue cefepime and Levaquin Follow urine cultures Finalized culture will be needed prior to changing off of IV antibiotics to oral antibiotics and discharging home Suprapubic catheter change plan for today Probiotics Spinal Cord Injury Paraplegia Neurogenic bladder Supportive care Continue suprapubic catheter Nicotine dependence Patient counseled to quit Marijuana use Patient recommended not to abuse marijuana Hypertension Continue amlodipine Continue clonidine DVT prophylaxis SCDs (possible procedure)
[2018-09-07] MEDS: Sod Chloride 0.9% Inj 1,000 ML IV.CONT SCH ×2 (11:39→18:05)
[2018-09-07] MEDS: Lactobacillus Acidophilus/L. Spores Tablet PO SCH ×2 (14:51→18:04)
--- NOTE | 2018-09-07 15:55 | P.PNADD ---
Addendum to Inpatient Note Additional information: Enterocccus R to FQ will start ampicillin PO cefepime can be used @ 2 gm q 12 for pts inf dw Dr Hess OK to dc from ID standpoint
--- NOTE | 2018-09-07 16:01 | P.DCO ---
Post Hospital Infusion Therapy - Infusion Therapy Location of Infusion Therapy: Home Health Care IV Infusion Order - Patient Information Patient Weight: 58.967 kg - Diagnosis (1) Acute UTI Code(s): N39.0 - Urinary tract infection, site not specified - Administer Medication Cefepime Dose: 2 grams IV Directions: q 12 hours Start Treatment: 09/08/18 Stop Treatment: 09/20/18 - Additional Information Venous Access: PICC Line Additional Instructions: [x] Peripheral flush and dressing changes per protocol [x] Implanted port and central linemarker: * Implanted port: 10 ml Normal Saline followed by 5 ml Heparin 100 units/ml Heparin flush after each use and monthly to maintain. [] May leave port accessed during therapy. [] May leave peripheral site accessed for duration of therapy. [x] If patient has SOB or respiratory distress, check oxygen saturation. If less than 90% or clinical signs of respiratory distress, administer oxygen at 2 L/min. via nasal cannula and notify physician. [x] Anaphylaxis/Reaction orders: * Stop infusion. * Keep IV line open with saline flush. * Notify physician. * Monitor vital signs every 15 minutes until symptoms resolve. * Check Oxygen saturation; Oxygen at 2 L/min. via nasal cannula if less than 90% or clinical signs of respiratory distress. * Administer diphenhydramine (Benadryl) 25 mg IV STAT, (unless patient has received as pre-med). May repeat once, if necessary. * Solu-Cortef 250 mg IVP over 30-60 seconds, use 100 mg vials for each dissolution. * Epinephrine (1mg/1 ml) 0.3 mg subcutaneously or IVP now with any signs of respiratory distress. * Check with physician for new additional pre-med orders if patient is re- challenged or re-treated. [x] May remove PICC line when treatment complete, after confirming with Physician. [x] If the patient is admitted to the hospital, the ED, or transferred via [facility] , complete transfer form including medication reconciliation order sheet. Weekly Labs: CBC w/diff, CMP - Case Management Consult Case Management Consult-IVF: Yes - Patient Information Allergies No Known Allergies Allergy (Verified 08/31/18 09:16)
--- NOTE | 2018-09-07 16:05 | P.PNID ---
Subjective Remarks: doing OK no fever co pain in the legs Antibiotics: lebvaquine cefepime Allergies/Adverse Reactions: Allergies No Known Allergies Allergy (Verified 08/31/18 09:16) Objective Vital Signs 09/06/18 17:04 09/06/18 20:00 09/07/18 00:00 Temperature 98.9 F 97.5 F L 97.7 F Pulse Rate 59 L 56 L 52 L Respiratory Rate 18 20 16 Blood Pressure 194/104 H 176/92 H 167/93 H Pulse Oximetry 100 96 94 L 09/07/18 04:00 09/07/18 07:55 Temperature 98.7 F 98.1 F Pulse Rate 56 L 66 Respiratory Rate 12 16 Blood Pressure 114/72 169/102 H Pulse Oximetry 95 99 Intake & Output 09/06/18 09/07/18 09/07/18 18:59 06:59 18:59 Intake Total 1300 / 1300 1370 / 1370 1200 / 1200 Output Total 500 / 500 650 / 650 Balance 800 / 800 720 / 720 1200 / 1200 Weight 58.967 kg Intake: IV 1300 / 1300 750 / 750 1200 / 1200 NS Inj 1,000 ML @ 100 mls/hr IV 1000 / 1000 650 / 650 1000 / 1000 .CONT .Q10H [facility] Rx#:[id number] Maxipime Inj 2,000 MG In NS Inj 200 / 200 100 / 100 200 / 200 100 ML @ 200 mls/hr IV.SIG Q8H [facility] Rx#:[id number] Levaquin 500 mg Premix Inj 500 100 / 100 mg In 100 ml @ 100 mls/hr IV. SIG Q24H [facility] Rx#:[id number] Oral 620 / 620 Output: Urine 650 / 650 Urine Amount (Catheter) 500 / 500 Suprapubic 500 / 500 Other: Bladder Irrigation Fluid - Amount Drained Suprapubic 1,800 Date of Last Bowel Movement 09/05/18 09/07/18 09/07/18 # Bowel Movements 2 09/05/18 05:05 Blood - Peripheral Aerobic Blood Culture - Preliminary No growth in 2 days 09/05/18 05:05 Blood - Peripheral Anaerobic Blood Culture - Preliminary No growth in 2 days 09/05/18 05:00 Blood - Peripheral Aerobic Blood Culture - Preliminary No growth in 2 days 09/05/18 05:00 Blood - Peripheral Anaerobic Blood Culture - Preliminary No growth in 2 days 09/05/18 05:02 Catheterized Urine Urine Culture - Final Pseudomonas aeruginosa Enterococcus faecalis Lab - Hematology Results 09/06/18 06:27 WBC 5.0 RBC 4.76 Hgb 14.3 Hct 43.4 MCV 91.1 MCH 30.0 MCHC 33.0 RDW 12.5 Plt Count 175 MPV 9.2 Neut % (Auto) 51.5 Lymph % (Auto) 34.6 [place] % (Auto) 7.9 Eos % (Auto) 5.2 H Baso % (Auto) 0.8 Neut # (Auto) 2.6 Lymph # (Auto) 1.7 [place] # (Auto) 0.4 Eos # (Auto) 0.3 Baso # (Auto) 0.0 WBC Differential . Differential Comment Auto diff final Lab - Chemistry Results 09/06/18 06:27 Sodium 141 Potassium 3.5 Chloride 108 H Carbon Dioxide 26.9 Anion Gap 6 BUN 13 Creatinine 1.19 Estimated GFR 79 L Random Glucose 67 L Calcium 9.0 Total Bilirubin 1.6 H AST 13 L ALT 12 Alkaline Phosphatase 74 Total Protein 7.8 Albumin 3.3 L Physical Exam: GENERAL: NAD mild distress 2/2 pain SKIN: Warm and dry. HEAD: Atraumatic. Normocephalic. EYES: Pupils equal and round. No scleral icterus. No injection or drainage. ENT: No nasal bleeding or discharge. Mucous membranes pink and moist. NECK: Trachea midline. No JVD. CARDIOVASCULAR: Regular rate and rhythm. RESPIRATORY: No accessory muscle use. Clear to auscultation. Breath sounds equal bilaterally. GASTROINTESTINAL: Abdomen soft, non-tender, nondistended. : SP cath in place urine clear, yellow MUSCULOSKELETAL: Extremities without clubbing, cyanosis, or edema. No obvious deformities. NEUROLOGICAL: Awake and alert. stable motor deficits Normal speech. PSYCHIATRIC: Appropriate mood and affect; Assessment and Plan (1) Acute UTI Status: Acute Code(s): N39.0 - Urinary tract infection, site not specified - Plan SCI Neurogenic bladder SP cath recurrent UTIs PSAE UTI, R quinolones, no oral options repeat clx with enterococci (>100K) R FQ, PSAE change to cefepime 2 gm q8-12 hrs dc levaquine start ampicillin 500 QID for enterocci coverage x 14 days total OK to dc from ID [place] will s/o - reconsult if any new issues dw Dr Carolyne Hess
[2018-09-08] MEDS: Sod Chloride 0.9% Inj 1,000 ML IV.CONT SCH ×3 (05:02→14:35)
[2018-09-08 07:23] VITALS: RESP 20
[2018-09-08] MEDS: diazePAM 5 MG Tablet PO SCH (08:05)
[2018-09-08] MEDS: Senna/Docusate Sodium 8.6/50 MG Tablet PO SCH (08:05)
[2018-09-08] MEDS: Lactobacillus Acidophilus/L. Spores Tablet PO SCH ×2 (08:05→12:03)
--- NOTE | 2018-09-08 09:49 | P.DS ---
Date of admission: 09/05/18 06:12 Primary care physician: No Primary Care Physician Brief History from admission: This is a pleasant 47 y/o male who came to ER with lower abdominal pain, he has C spine injury with secondary Neurogenic bladder, and suprapubic cath. Patient started having lower abdominal pain about 5 days ago. Patient states that usually he has abdominal pain with UTI. Patient was seen in emergency room 4 days ago. UA grew Pseudomonas. Patient was given prescription for Macrobid at that time. Patient states that he was unable to fill the prescription. Patient return to the emergency room 2 days ago with complaints of abdominal pain again. Patient was given prescription for Cipro. Patient states that he has been unable to fill the prescription. Patient states that he had persistent lower abdominal pain. Patient denies any headache. Patient denies any chest pain or shortness of breath. Patient denies any nausea vomiting diarrhea. Patient was advised to have Elizabeth catheter removed and replaced with a new Elizabeth cath. Patient refused the procedure in the ED. Patient wanted to wait to see his urologist for Elizabeth catheter placement. Abdominal pain as a constant pain, 7/10 in intensity, as a Sharp sensation. he has Hypertension, Tobacco dependence, Marijuana abuse. DS: Medications - Discharge Medications Prescriptions: ciprofloxacin HCl [Cipro] 500 mg PO BID #20 tab DS: Summary Hospital Course: Mr. Arnold is a 47-year-old male. She has a history of chronic upper/lower extremity paraplegia. He was admitted with abdominal pain which is typical for urinary tract infection in him. Testing shows positive urinary tract infection with Pseudomonas and enterococcus. Plan for cefepime as an outpatient and levofloxacin. IV cefepime will be provided through midline which was placed yesterday. Patient's abdominal pain is improving. At this point is medically stable and cleared for discharge to home with outpatient home health and IV administration for the next 2 weeks. Discharge home today. - Time Spent with Patient Total time spent providing and/or coordinating discharge services: Less than 30 minutes - Quality: VTE Deep Vein Thrombosis/Pulmonary Embolism Present on Admission: No Exam Vital signs: Vital Signs 09/07/18 16:00 09/07/18 20:00 09/07/18 23:39 Temperature 98.0 F 98.1 F Pulse Rate 80 60 76 Respiratory Rate 16 20 22 Blood Pressure 140/91 H 143/91 H 139/84 Pulse Oximetry 99 98 97 09/08/18 04:00 09/08/18 07:20 Temperature 97.6 F 97.7 F Pulse Rate 52 L 60 Respiratory Rate 16 20 Blood Pressure 130/81 110/70 Pulse Oximetry 97 100 Intake & Output 09/07/18 09/08/18 09/08/18 18:59 06:59 18:59 Intake Total 2200 / 2200 1100 / 1100 1100 / 1100 Balance 2200 / 2200 1100 / 1100 1100 / 1100 Weight 58.967 kg Intake: IV 2200 / 2200 1100 / 1100 1100 / 1100 NS Inj 1,000 ML @ 100 mls/hr IV 2000 / 2000 1000 / 1000 1000 / 1000 .CONT .Q10H [facility] Rx#:[id number] Maxipime Inj 2,000 MG In NS Inj 200 / 200 100 / 100 100 / 100 100 ML @ 200 mls/hr IV.SIG Q8H [facility] Rx#:[id number] Other: Date of Last Bowel Movement 09/07/18 Results Procedures completed during hospitalization: suprapubic catheter change Labs on day of discharge: Preliminary micro results at discharge 09/05/18 05:05 Aerobic Blood Culture - Preliminary Blood - Peripheral No growth in 2 days Anaerobic Blood Culture - Preliminary No growth in 2 days 09/05/18 05:00 Aerobic Blood Culture - Preliminary Blood - Peripheral No growth in 2 days Anaerobic Blood Culture - Preliminary No growth in 2 days Discharge Plan - Discharge Disposition Patient Disposition: /Home Health Service - Discharge Condition Condition: Stable - Discharge Order Discharge Orders: Discharge Order (Routine); Ordered 09/08/18 Ordered By: John Hess - Discharge Details Anticipated Discharge Date: 09/04/18 - Physicians Team Primary Care Provider: Primary Care Marj Rosario Attending Provider: John Hess Other Providers: Alissa Simon MD ; [employer] ; [facility] ; Nestor Garcia MD, PhD
[2018-09-08 11:30] VITALS: BP 157/106; PULSE 62; TEMP 98.6; O2SAT 99
== END 2018-09-08 16:50 | disposition home health service (06) ==
LOC: NEDA 22:52 → NEPD 22:52 → NEDA 09-05 07:30 → NEPFCDU 09-05 07:56
PROVIDERS: ADMIT Hospitalist; ATTEND Hospitalist
DX: G95.9 Disease of spinal cord, unspecified; G82.50 Quadriplegia, unspecified; F17.210 Nicotine dependence, cigarettes, uncomplicated; S14.109A Unspecified injury at unspecified level of cervical spinal cord, initial encounter; I10 Essential (primary) hypertension; B95.2 Enterococcus as the cause of diseases classified elsewhere; N31.9 Neuromuscular dysfunction of bladder, unspecified; G89.4 Chronic pain syndrome; X58.XXXA Exposure to other specified factors, initial encounter; F12.10 Cannabis abuse, uncomplicated; M62.838 Other muscle spasm; B96.5 Pseudomonas (aeruginosa) (mallei) (pseudomallei) as the cause of diseases classified elsewhere; N39.0 Urinary tract infection, site not specified